=== PATIENT | male | born 1940 | race Caucasian/White ===

== ENCOUNTER 2018-11-24 06:46 | Inpatient (IN) | payer MEDICARE ==
[2018-11-24] MEDS ORDERED: Aspirin Chewable 81 MG TAB ONE (07:25)
[2018-11-24 07:43] LABS: INR-International Normal Ratio 1.8; Prothrombin Time 21.3 SEC (12.0-14.7)
[2018-11-24] MEDS ORDERED: Diltiazem 125 MG in Sodium Chloride 0.9% 100 ML IVPB SCH ×2 (07:45→10:45)
[2018-11-24 07:46] LABS: #Lymphocytes 0.6 thou/uL (1.20-3.40); #Neutrophils 10.6 thou/uL (1.40-6.50); %Basophils 0.2 % (0.0-1.0); %Eosinophils 0.1 % (0.0-10.0); %Lymphocytes 4.9 % (21.0-51.0); %Monocytes 8.2 % (0.0-10.0); %Neutrophils 86.6 % (42.0-75.0); Band 27 % (5-11); Hemoglobin 11.5 g/dL (14.0-18.0); Lymphocytes 7 % (21-51); MDiff Complete? YES; Mean Corpuscular HGB CONC 32.1 g/dL (32.0-36.0); Mean Corpuscular Hemoglobin 32.5 pg (27.0-31.0); Mean Platelet Volume 7.4 fL (7.4-10.4); Monocytes 9 % (0-10); Neutrophil 57 % (42-75); Platelet Count 106 thou/uL (130-400); Platelet Morphology Comment Appears Decreased; RBC Distribution Width 13.6 % (11.5-14.5); RBC Morphology Normal; Red Blood Cell (RBC) Count 3.53 mill/uL (4.70-6.10); White Blood Cell (WBC) Count 12.3 thou/uL (4.8-10.8)
[2018-11-24 07:47] LABS: Chloride 104 mmol/L (98-107); Potassium 3.9 mmol/L (3.5-5.1); Sodium 137 mmol/L (136-145)
[2018-11-24 08:00] LABS: ALT (SGPT) 20 U/L (8-55); AST (SGOT) 17 U/L (5-34); Albumin 3.5 g/dL (3.4-4.8); Alkaline Phosphatase 59 U/L (40-150); Anion Gap 16 mmol/L (10-20); BUN (Urea Nitrogen) 18 mg/dL (8.4-25.7); Bilirubin, Total 0.9 mg/dL (0.2-1.2); CK (CPK) 19 U/L (30-200); Calc. Creatinine Clearance 0 mL/min (70-130); Calcium 8.8 mg/dL (7.8-10.44); Carbon Dioxide 21 mmol/L (23-31); Estimated GFR-MDRD 87; Globulin 3.1 g/dL (2.4-3.5); Glucose 205 mg/dL (83-110); Protein, Total 6.6 g/dL (5.8-8.1)
--- NOTE | 2018-11-24 08:58 | RAD ---
SINGLE VIEW CHEST: HISTORY: Rapid heart rate and shortness of breath. COMPARISON: None. FINDINGS: A single view of the chest shows a normal sized cardiomediastinal silhouette. The patient is status post sternotomy. There is no evidence of consolidation, mass, or pleural effusion. IMPRESSION: No evidence of acute cardiopulmonary disease. POS: [facility]
[2018-11-24] MEDS ORDERED: Dextrose 5% in Water 1,000 ML IV PRN (10:41)
[2018-11-24] MEDS ORDERED: Dextrose 50% Abboject 50 ML SYRINGE SLOW IVP PRN (10:41)
[2018-11-24] MEDS ORDERED: Guaifenesin DM 100-10/5 ML UDCUP PO PRN (10:41)
[2018-11-24] MEDS ORDERED: HumaLOG 300 UNITS/3 ML VIAL SC PRN ×2 (10:41)
[2018-11-24] MEDS ORDERED: Heparin 1,000 UNITS/ML VIAL ONE (11:11)
[2018-11-24 11:14] LABS: Troponin I Less than 0.010 ng/mL (< 0.028)
--- NOTE | 2018-11-24 11:27 | HP ---
REASON FOR ADMISSION: Atrial flutter with 3:1 block. HISTORY OF PRESENTING ILLNESS: The patient gives history of waking up around 5.30 in the morning. He developed palpitations along with shortness of breath. He felt very weak. He has had the same feeling yesterday in the evening and two or three days back as well. He knew he was in atrial fibrillation or flutter as he has had them before. He called 911 and the patient was brought here. EMS recorded his ventricular rate going up to 204 beats per minute at 6:02 a.m. On arrival here , the patient had flutter at 115 beats per minute. He was given Cardizem IV 20 mg push and is currently on 5 mg an hour. No complaints of chest pain or palpitation. No complaints of expectoration, but has dry cough. No complaints of urinary frequency or urgency. He states he ambulates by himself. PAST MEDICAL AND SURGICAL HISTORY: He has had nearly four cardioversions. The dates are 12/2006, 02/2007, 09/2007, and 07/2009. He has had ablation done twice that is on 07/2004 and 07/2007. Most of these were done by Dr. Almaraz. Mitral valve repair done in January of 2002 at [facility]. Inguinal hernia repair. Laparoscopic cholecystectomy done in November of 2010. EGD done in November of 2010. Colonoscopy done in November of 2010. Diabetes mellitus type 2. CURRENT MEDICATIONS: The patient takes, 1. Zetia 10 mg p.o. daily. 2. Norvasc 10 mg daily. 3. Metformin extended release 2000 mg p.o. at bedtime. 4. Vitamin D3 50,000 once a week. 5. Pravastatin 80 mg p.o. at bedtime. 6. Glimepiride 2 mg p.o. q.a.m. 7. Flomax 0.4 mg p.o. daily. 8. Ferrous sulfate 325 mg p.o. daily. 9. Xarelto 20 mg p.o. daily. 10. Jardiance 10 mg p.o. daily. ALLERGIES: NO KNOWN DRUG ALLERGIES. PERSONAL HISTORY: Drinks vodka tonic daily along with a glass of wine. Does not abuse drugs. No history of smoking. FAMILY HISTORY: Both parents in their 70s. Mother had dementia. Father had coronary artery disease. CODE STATUS: Full. POWER OF CONVENTION WORKER: His son Mr. Bakari Stringer. REVIEW OF SYSTEMS: CONSTITUTIONAL: Negative for weight loss or gain, ability to conduct usual activities. SKIN: Negative for rash, itching. EYES: Negative for double vision, pain. ENT/MOUTH: Negative for nose bleeding, neck stiffness, pain, tenderness. CARDIOVASCULAR: Negative for palpitations, dyspnea on exertion, orthopnea. RESPIRATORY: Negative for shortness of breath, wheezing, cough, hemoptysis, fever or night sweats. GASTROINTESTINAL: Negative for poor appetite, abdominal pain, heartburn, nausea , vomiting, constipation, or diarrhea. GENITOURINARY: Negative for urgency, frequency, dysuria, nocturia. MUSCULOSKELETAL: Negative for pain, swelling. NEUROLOGIC/PSYCHIATRIC: Negative for anxiety, depression. ALLERGY/IMMUNOLOGIC: Negative for skin rash, bleeding tendency. PHYSICAL EXAMINATION: GENERAL: The patient is a 77-year-old male, who is currently not in any acute distress. VITAL SIGNS: Blood pressure 124/82, pulse 86 per minute, respiratory rate is 18 per minute, temperature 98.2 degrees Fahrenheit, and saturating 93% on room air. NECK: Supple. No elevated JVD. HEENT: Eyes; extraocular muscles are intact. Pupils are reacting to light. Oral cavity, mucous membranes are dry. No exudates or congestion. CARDIOVASCULAR SYSTEM: S1 and S2 heard. Currently in regular rhythm. RESPIRATORY SYSTEM: Air entry 1+ bilateral. Scattered rhonchi plus no rales or wheezes. ABDOMEN: Soft. Bowel sounds heard. No tenderness, rigidity, or guarding. EXTREMITIES: Mild ankle edema, otherwise no calf tenderness. Peripheral pulses are 2+ bilateral. No ischemic ulcerations or gangrene. CENTRAL NERVOUS SYSTEM: No gross focal deficits noted. The patient is alert, awake, and oriented well. PSYCHIATRIC SYSTEM: The patient's mood is euthymic. No hallucinations or delusions. LABORATORY DATA: EKG done by EMS shows atrial flutter at 204 beats per minute. This was at 6:02 a.m. A 12-lead EKG done in the ER; in the initial one, the rate was 115 with atrial flutter. The subsequent one done after 15 minutes shows ventricular rate going down to 70 beats per minute with the patient still in atrial flutter. White count of 12, hemoglobin and hematocrit of 11 and 35, platelet count 106, MCV is 101 with 86% neutrophils. PT and INR of 21 and 1.8. Serum bicarb 21, BUN 18, creatinine 0.8, serum glucose 205. Liver enzymes are within normal limits. Troponin I 0.01. BNP 211. Albumin is 3.5. Chest x-ray done shows no acute cardiopulmonary abnormality. CLINICAL IMPRESSION AND PLAN: The patient will be admitted to telemetry for recurrent atrial flutter with multiple prior ablations and cardioversions. His rate is currently holding up on Cardizem drip. We will continue his Cardizem drip at 5 mg an hour. We will consult Dr. Viet De Jesus, who is planer stone for electrophysiology for Dr. Almaraz. We will also place him on normal saline at 50 mL per hour for buffering in case if he gets into low pressure with Cardizem drip. Echo with 2D Doppler for LV function and to rule out thrombus will be obtained. We will continue Xarelto, Pravachol high dose, Flomax, metformin will be 1000 mg twice daily, glimepiride 2 mg daily, and Zetia as before. We will add a small dose of aspirin for now. His music mixer is Dr. Segura, who will be consulted if needed during his stay here. We will continue to closely monitor him on telemetry. Job ID: [id number] [facility]
[2018-11-24 13:00] LABS: Bilirubin Small (Negative); Blood, Urine Trace (Negative); Clarity CLEAR (Clear); Glucose, Urine (Dipstick) >=1000 mg/dL (Negative); Leukocyte Negative (Negative); Nitrite Negative (Negative); Protein, Urine (Dipstick) 30 mg/dL (Neg-Trace); Specific Gravity, Urine 1.039 (1.002-1.036)
[2018-11-24 13:03] LABS: Bacteria/HPF None Seen HPF (None Seen); Hyaline Casts/LPF 4-6 HYALINE CAST LPF (0-3 Hyaline); Pathc Cast-AUWi Flag 1.01 (0-2.49); Squamous Epithelial 0-3 HPF (0-3)
[2018-11-24 14:21] LABS: Troponin I 0.015 ng/mL (< 0.028)
[2018-11-24 14:48] VITALS: BMI 23.2
[2018-11-24] MEDS: Sodium Chloride 0.9% 1,000 ML IV SCH (16:49)
[2018-11-24] MEDS: metFORMIN 500 MG TAB PO SCH (18:02)
[2018-11-24] MEDS: Atorvastatin Calcium 20 MG TAB PO SCH (20:11)
[2018-11-24] MEDS: Famotidine 20 MG TAB PO SCH (20:11)
--- NOTE | 2018-11-24 23:51 | CON ---
DATE OF CONSULTATION: 11/24/2018 HISTORY OF PRESENT ILLNESS: I am seeing Mr. Stringer at our [facility]. His problems are: 1. Rapid tachycardia, likely atrial flutter 1:1 conduction, responding to IV diltiazem. 2. Atrial arrhythmias with chronic atrial flutter to a prior history of ablation procedure most recently in September 2008. 3. History of preserved LVEF on echo at 55% to 60% on March 19, 2015, left atrial enlargement. 4. History of anemia without definite cause or overt GI bleed, tolerating Xarelto. 5. Risk factors including diabetes and hypertension. 6. History of mitral valve annuloplasty. 7. Leukocytosis. ALLERGIES: SULFA. MEDICATIONS: At home included; 1. Jardiance. 2. Cholecalciferol. 3. Ferrous sulfate. 4. Rivaroxaban. 5. Amlodipine. 6. Metformin. 7. Prolastin. 8. Ezetimibe. 9. Metronidazole. 10. Tamsulosin. 11. Glimepiride. 12. Myrbetriq. SUBJECTIVE: Mr. Stringer is reporting 3-4 weeks of increased fatigue and tiredness. No obvious reason for this is present. He diagnosed with palpitations until 2 days prior to admission. This worsened by 0530 hours in the morning. He had rapid palpitations and dyspnea. He felt very weak and he came to the ER. His heart rate by EMS was 204 beats per minute, but on arrival to the ER, his heart rate was 150 beats per minute. IV diltiazem 10 mg was given and then drip after that. He has stabilized on the current regimen. He has no angina-like discomfort. Significant dyspnea at this time. No fever or chills. Has chronic dry cough. No urinary frequency or urgency. No abdominal discomfort or diarrhea. Rest of 12-point system otherwise unremarkable. PAST MEDICAL HISTORY: As above. He had extensive arrhythmia history with repeated cardioversions and ablations in July 2004 [address] Almaraz in the past. He had mitral valve repair in 2001 at [facility]. SOCIAL HISTORY: The patient denies smoking, EtOH, or drug abuse. FAMILY HISTORY: Not contributory. OBJECTIVE DATA: VITAL SIGNS: Blood pressure 120/58, heart rate 93, respirations 18, and temperature 97.9 degrees Fahrenheit. PHYSICAL EXAMINATION: GENERAL: Alert and oriented man, in no apparent distress. NECK: Supple. Jugular veins not distended. CHEST: Coarse without crackles. HEART: Sounds are irregular. No murmur or gallop. ABDOMEN: Benign. Bowel sounds positive. EXTREMITIES: Lower extremities without edema, clubbing, or cyanosis. DATABASE: EKGs reviewed revealing chronic atrial flutter of unlike prior EKGs. Initial EKG does reveal some episodic short rapid heart beats with rate related aberration to right bundle pattern. LABORATORY DATA: White cells 12.3, hemoglobin 11.5, and platelet count is 106. INR 1. Sodium 137, potassium 3.9, BUN is 18, and creatinine 0.85. ASSESSMENT AND PLAN: Mr. Stringer is a pleasant 77-year-old man with prior extensive history of atrial arrhythmias with repeat ablation as noted above. He has been in chronic atrial flutter, which was very well rate controlled without any AV thompson blocking agents. He is also on chronic oral anticoagulation as his stroke risk. Now, he presents with worsening palpitations and a very rapid tachycardia by EMS is noted , but subsequently in ER the heart rates are already better controlled. He is currently on diltiazem drip. The reason for his worsening heart rate control is not very clear. No obvious change in his cardiac statuis is seen. 2D echo will be checked for any abnormalities, not suspecting ischemic event, hence, benign troponin levels and lack of symptoms. Possible alternative explanation might need to be considered. Infectious etiologies will be evaluated as per Dr. Scott. It is not unreasonable to switch him his amlodipine into diltiazem for further rate control. \ For now, we will continue Xarelto. At this point, no new ablation procedure is planned. Thank you again for allowing me to participate in the care of this patient. Job ID: [id number] [facility]
[2018-11-25] MEDS: Ampicillin 2 GM in Sodium Chloride 0.9% 100 ML IVPB SCH ×5 (02:42→20:30)
[2018-11-25 05:42] LABS: #Lymphocytes 0.8 thou/uL (1.20-3.40); #Monocytes 0.8 thou/uL (0.11-0.59); #Neutrophils 6.7 thou/uL (1.40-6.50); %Basophils 0.2 % (0.0-1.0); %Eosinophils 0.3 % (0.0-10.0); %Lymphocytes 9.9 % (21.0-51.0); %Monocytes 9.8 % (0.0-10.0); %Neutrophils 79.8 % (42.0-75.0); Hemoglobin 10.4 g/dL (14.0-18.0); Mean Corpuscular HGB CONC 32.2 g/dL (32.0-36.0); Mean Corpuscular Hemoglobin 32.9 pg (27.0-31.0); Mean Platelet Volume 7.5 fL (7.4-10.4); Platelet Count 98 thou/uL (130-400); RBC Distribution Width 13.5 % (11.5-14.5); Red Blood Cell (RBC) Count 3.17 mill/uL (4.70-6.10); White Blood Cell (WBC) Count 8.4 thou/uL (4.8-10.8)
[2018-11-25 06:11] LABS: Anion Gap 14 mmol/L (10-20); BUN (Urea Nitrogen) 14 mg/dL (8.4-25.7); Calc. Creatinine Clearance 95 mL/min (70-130); Calcium 8.5 mg/dL (7.8-10.44); Carbon Dioxide 23 mmol/L (23-31); Chloride 107 mmol/L (98-107); Estimated GFR-MDRD Greater than 90; Glucose 140 mg/dL (83-110); Sodium 140 mmol/L (136-145)
[2018-11-25] MEDS: Rivaroxaban 10 MG TAB PO SCH (06:22)
[2018-11-25] MEDS: metFORMIN 500 MG TAB PO SCH ×2 (08:18→16:09)
[2018-11-25] MEDS: Tamsulosin HCl 0.4 MG CAP PO SCH (08:19)
[2018-11-25] MEDS: Glimepiride 2 MG TAB PO SCH (08:19)
[2018-11-25] MEDS: Famotidine 20 MG TAB PO SCH ×2 (08:19→20:41)
[2018-11-25] MEDS: Ezetimibe 10 MG TAB PO SCH (08:20)
[2018-11-25] MEDS: Aspirin Chewable 81 MG TAB PO SCH (08:20)
[2018-11-25] MEDS ORDERED: Prevnar 13-Val Conj/PF 0.5 ML SYRINGE IM ONE (09:00)
[2018-11-25] MEDS ORDERED: Amlodipine 10 MG TAB PO SCH (09:00)
[2018-11-25] MEDS: cefTRIAXone\\ROCEPHIN 2 GM in Sodium Chloride 0.9% 100 ML IVPB SCH ×2 (09:32→20:46)
[2018-11-25] MEDS: Sodium Chloride 0.9% 1,000 ML IV SCH (12:13)
--- NOTE | 2018-11-25 13:58 | PDOC.CTH ---
Cardiology Progress Note - Subjective EP PROGRESS NOTE: 11/25/18 Seen as follow up for atypical atrial flutter with RVR. No cardiac concerns or complaints today. He is feeling well but is concerned about the positive blood cultures. - Objective Vital Signs Temp Pulse Resp BP Pulse Ox 11/25/18 08:12 99.2 F 96 16 125/76 94 L 11/25/18 04:00 99.1 F 95 20 150/76 H 95 Admit Weight 176 lb Weight 176 lb 11/24/18 11/25/18 11/26/18 06:59 06:59 06:59 Intake Total 1215 Output Total 1625 Balance -410 - Physical Examination General/Neuro: alert & oriented x3, NAD Neck: carotid US brisk, no JVD present Lungs: CTA, unlabored respirations Heart: PMI normal Abdomen: NT/ND, soft - Telemetry Telemetry Rhythm: atypical atrial flutter - Labs Result Diagrams: 11/25/18 05:23 11/25/18 05:23 Troponin/CKMB Troponin I 0.015 ng/mL (< 0.028) 11/24/18 13:21 - Assessment/Plan 1. Atrial arrhythmias -s/p PVI in remote past. Now with chronic atypical atrial flutter. Came in with 1:1 RVR possibly provoked by BSI. 2. CHADS2-VASC: 4 - chronic anticoagulation with xarelto 3. Positive blood cultures - infectious process being evaluated by Kyle CASTRO. Started on PO diltiazem CD 180mg QD this AM. VR <100. Will stop diltiazem gtt and continue with PO rate control. Continue Xarelto for OAC. Will need OP follow up with [facility]. EP signing off. Please contact me if further EP input is desired.
--- NOTE | 2018-11-25 14:59 | PDOC.PN ---
- Subjective Encounter Start Date: 11/25/18 Encounter Start Time: 08:40 Pt seen for followup re: bacteremia. Says he feels well. No chest pain or shortness of breath. - Objective Resuscitation Status - Order Detail: 11/24/18 10:35 Resuscitation Status Routine Resuscitation Status: FULL: Full Resuscitation Discussed with: JADE is son: Mr.James Myke PINA Reviewed: Yes Vital Signs & Weight: Vital Signs (12 hours) Temp Pulse Resp BP Pulse Ox 11/25/18 12:00 98 F 94 18 116/70 95 11/25/18 08:12 99.2 F 96 16 125/76 94 L 11/25/18 04:00 99.1 F 95 20 150/76 H 95 Weight Admit Weight 176 lb Weight 176 lb I&O: 11/24/18 11/25/18 11/26/18 06:59 06:59 06:59 Intake Total 1215 Output Total 1625 Balance -410 Result Diagrams: 11/25/18 05:23 11/25/18 05:23 Additional Labs: Accuchecks 11/25/18 11/25/18 11/24/18 11:51 05:57 20:16 POC Glucose 146 H 131 H 219 H 11/24/18 17:52 POC Glucose 202 H EKG Reviewed by me: Yes (Tele: NSR) Phys Exam - Physical Examination Constitutional: NAD HEENT: moist MMs, sclera anicteric, oral pharynx no lesions, 2+ tonsils Neck: no nodes, no JVD, supple, full ROM Respiratory: clear to auscultation bilateral Cardiovascular: RRR, no rub S1, S2 Gastrointestinal: soft, non-tender, no distention, positive bowel sounds Neurological: moves all 4 limbs Psychiatric: normal affect, A&O x 3 Dx/Plan (1) Bacteremia Code(s): R78.81 - BACTEREMIA Status: Acute Comment: continue IV antibiotics as below, await sensitivities (2) Afib Code(s): I48.91 - UNSPECIFIED ATRIAL FIBRILLATION Status: Acute Comment: pt is in sinus rhythm now (3) HTN (hypertension) Code(s): I10 - ESSENTIAL (PRIMARY) HYPERTENSION Status: Chronic Comment: controlled (4) DM2 (diabetes mellitus, type 2) Status: Chronic Comment: relatively controlled (5) Dyslipidemia Code(s): E78.5 - HYPERLIPIDEMIA, UNSPECIFIED Status: Chronic Comment: continue Lipitor - Plan * . Review of Systems - Review of Systems Constitutional: negative: fever, chills, sweats, weakness, malaise Cardiovascular: negative: chest pain, palpitations, orthopnea, paroxysmal nocturnal dyspnea, edema, light headedness Gastrointestinal: negative: Nausea, Vomiting, Abdominal Pain, Diarrhea, Constipation, Melena, Hematochezia Genitourinary: negative: Dysuria, Frequency, Incontinence, Hematuria, Retention Skin: negative: Rash, Lesions, Juan, Bruising - Medications/Allergies Allergies/Adverse Reactions: Allergies Allergy/AdvReac Type Severity Reaction Status Date / Time Sulfa (Sulfonamide Allergy Unknown Verified 11/24/18 14:45 Antibiotics) Medications: Current Medications Acetaminophen (Tylenol) 650 mg PO Q4H PRN PRN Reason: Headache/Fever/Mild Pain (1-3) Aspirin (Aspirin Chewable) 81 mg PO DAILY [facility] Last Admin: 11/25/18 08:20 Dose: 81 mg Atorvastatin Calcium (Lipitor) 20 mg PO HS [facility] Last Admin: 11/24/18 20:11 Dose: 20 mg Dextrose/Water (Dextrose 50%) 25 gm SLOW IVP PRN PRN PRN Reason: Hypoglycemia Diltiazem HCl (Cardizem Cd) 180 mg PO DAILY [facility] Last Admin: 11/25/18 09:32 Dose: 180 mg Ezetimibe (Zetia) 10 mg PO DAILY [facility] Last Admin: 11/25/18 08:20 Dose: 10 mg Famotidine (Pepcid) 20 mg PO BID [facility] Last Admin: 11/25/18 08:19 Dose: 20 mg Glimepiride (Amaryl) 2 mg PO QAM[facility] Last Admin: 11/25/18 08:19 Dose: 2 mg Glucagon (Glucagon) 1 mg IM PRN PRN PRN Reason: Hypoglycemia Guaifenesin/Dextromethorphan (Robitussin Dm) 15 ml PO Q4H PRN PRN Reason: Cough Dextrose/Water (D5w) 1,000 mls @ 0 mls/hr IV .Q0M PRN PRN Reason: Hypoglycemia Sodium Chloride (Normal Saline 0.9%) 1,000 mls @ 50 mls/hr IV .Q20H [facility] Last Admin: 11/25/18 12:13 Dose: 1,000 mls Ceftriaxone Sodium 2 gm/ (Sodium Chloride) 100 mls @ 200 mls/hr IVPB Q12HR [facility] Last Admin: 11/25/18 09:32 Dose: 100 mls Ampicillin Sodium 2 gm/ Sodium (Chloride) 100 mls @ 200 mls/hr IVPB 0000,0400, 0800,1200 [facility] Last Admin: 11/25/18 12:12 Dose: 100 mls Ampicillin Sodium 2 gm/ Sodium (Chloride) 100 mls @ 200 mls/hr IVPB 1600,2000 [facility] Insulin Human Lispro (Humalog) 0 units SC .MODERATE SLIDING SC PRN PRN Reason: Moderate Correctional Scale Insulin Human Lispro (Humalog) 0 units SC .BEDTIME SLIDING SC PRN PRN Reason: Bedtime Correctional Scale Metformin HCl (Glucophage) 1,000 mg PO BID-[facility] Last Admin: 11/25/18 08:18 Dose: 1,000 mg Rivaroxaban (Xarelto) 20 mg PO 0600 [facility] Last Admin: 11/25/18 06:22 Dose: 20 mg Sodium Chloride (Flush - Normal Saline) 10 ml IVF Q12HR [facility] Last Admin: 11/25/18 09:08 Dose: Not Given Sodium Chloride (Flush - Normal Saline) 10 ml IVF PRN PRN PRN Reason: Saline Flush Tamsulosin HCl (Flomax) 0.4 mg PO DAILY [facility] Last Admin: 11/25/18 08:19 Dose: 0.4 mg
[2018-11-25] MEDS: Atorvastatin Calcium 20 MG TAB PO SCH (20:41)
[2018-11-26] MEDS: Ampicillin 2 GM in Sodium Chloride 0.9% 100 ML IVPB SCH ×6 (00:33→20:15)
--- NOTE | 2018-11-26 00:53 | CON ---
DATE OF CONSULTATION: 11/25/2018 REASON FOR CONSULTATION: Bacteremia. HISTORY OF PRESENT ILLNESS: A 77-year-old, who has a history of what appears to be a supraventricular tachycardia with atrial flutter, prior cardioversions, and 2 ablations as well as a previous mitral valve repair, who has felt unwell for the past 2 to 3 months with racing heart rates intermittently with spontaneous reversion. He had some weakness and dyspnea associated with it. Some weight loss about 10 pounds. He never had fever or chills. No night sweats. No chest pain. No back pain. No genitourinary symptoms. No abdominal pain or diarrhea. No joint symptoms. No neurological symptoms. PAST MEDICAL HISTORY: Atrial flutter with previous cardioversions and ablations , mitral valve repair, hernia repair. SOCIAL HISTORY: He drinks alcoholic beverages daily. He is a never smoker, retired, lives in [place] by himself. ALLERGIES: HISTORY OF ALLERGY TO SULFA DRUGS. FAMILY HISTORY: Noncontributory. CURRENT MEDICATIONS: 1. Ampicillin. 2. Aspirin. 3. Ceftriaxone. 4. Zetia. 5. Pepcid. 6. Amaryl. 7. Insulin. 8. Xarelto. 9. Tamsulosin. PHYSICAL EXAMINATION: VITAL SIGNS: T-max 99.1, blood pressure 116/70, pulse 94, respirations 18, and O2 saturation 95%. SKIN: Normal. NECK: No lymphadenopathy. Neck is supple. No jugular vein distention or carotid bruits. HEENT: Ocular movements conjugate. Sclerae are white. The patient has a right-sided conjunctival hemorrhages noted. Nasal passages are patent. Oral cavity is unremarkable. Quite a few teeth in place with some decay and gum disease. LUNGS: Symmetric air entry with faint basilar inspiratory crackles. CARDIAC: S1 and S2. Regular rate without obvious murmurs. ABDOMEN: Soft, not distended or tender. No ascites. No bladder distention. No organomegaly. No genital abnormalities. EXTREMITIES: No joint inflammatory activity. Pulses are 1+ in dorsalis pedis. No edema. Moves extremities equally. NEUROLOGIC: He is awake, oriented, follows commands. Cognitive function appears to be intact. LABORATORY DATA: White cell count is 12.3, down to 8.4; hemoglobin 11; MCV 101; platelets 106; and 27% bands on arrival. INR 1.8. Chemistry; sodium 137 and creatinine 0.85. Liver profile within normal limits. CK 19 and albumin 3.5. Urinalysis with 4-6 wbc's. Microbiology with 2 out of 2 sets of blood cultures with Enterococcus faecalis. His urine culture with something growing in it. Further incubation required. Urinalysis already discussed. DIAGNOSTIC DATA: The patient has had an echocardiogram, transthoracic with moderately dilated left atrium, [id number] mitral regurgitation. Chest x-ray with no acute cardiopulmonary disease. ASSESSMENT: 1. Previous history of supraventricular tachycardia with prior ablations, cardioversions for atrial flutter as well as mitral valve repair. 2. Enterococcus faecalis bacteremia. 3. [id number] mitral regurgitation. DISCUSSION: Differential diagnosis includes mitral valve endocarditis or aortic valve endocarditis due to Enterococcus faecalis versus urinary tract infection. We will have to assume he has endocarditis until proven otherwise. We will order a INO and eventually decide on the need for protracted IV antimicrobial therapy. Options for treatment of an Enterococcus faecalis endocarditis have expanded a bit with the possibility of utilization of a combination of ampicillin and Rocephin, I have had failures of this regimen in the past. We will have to monitor closely. In his case, I probably would try that first before resorting to gentamicin, ampicillin , but that will depend on the INO findings. If he has a lot of disease there, then we will probably go for the more proven regimen of penicillin and gentamicin, that would require PICC line placement and disposition will depend on other issues. He lives alone at home and then he would require a double-lumen PICC line with pump infusion and intermittent administration of Rocephin in the home setting or gentamicin, which would complicate situation. Probably, we will end up in a skilled unit, maybe the [facility]' swing bed. Job ID: [id number] [facility]
[2018-11-26] MEDS: Sodium Chloride 0.9% 1,000 ML IV SCH (06:10)
[2018-11-26] MEDS: Rivaroxaban 10 MG TAB PO SCH ×2 (07:50→10:37)
[2018-11-26] MEDS: cefTRIAXone\\ROCEPHIN 2 GM in Sodium Chloride 0.9% 100 ML IVPB SCH ×2 (10:27→20:15)
[2018-11-26] MEDS: Famotidine 20 MG TAB PO SCH ×2 (10:33→20:15)
[2018-11-26] MEDS: Tamsulosin HCl 0.4 MG CAP PO SCH (10:34)
[2018-11-26] MEDS: metFORMIN 500 MG TAB PO SCH ×2 (10:34→16:26)
[2018-11-26] MEDS: Aspirin Chewable 81 MG TAB PO SCH (10:34)
[2018-11-26] MEDS: Ezetimibe 10 MG TAB PO SCH (10:35)
[2018-11-26] MEDS: Glimepiride 2 MG TAB PO SCH (10:36)
[2018-11-26] MEDS ORDERED: PROPOFOL 20 ML ONE (13:15)
[2018-11-26] MEDS ORDERED: PROPOFOL 200 MG/20 ML VIAL ONE (13:32)
--- NOTE | 2018-11-26 15:16 | PDOC.PN ---
- Subjective Encounter Start Date: 11/26/18 Encounter Start Time: 08:40 Pt seen for followup re: bacteremia. Says he feels well, no complaints. - Objective Resuscitation Status - Order Detail: 11/24/18 10:35 Resuscitation Status Routine Resuscitation Status: FULL: Full Resuscitation Discussed with: JADE is son: Mr.James Myke PINA Reviewed: Yes Vital Signs & Weight: Vital Signs (12 hours) Temp Pulse Resp BP Pulse Ox 11/26/18 04:00 97.9 F 92 18 119/74 96 Weight Admit Weight 176 lb Weight 178 lb 1.6 oz I&O: 11/25/18 11/26/18 11/27/18 06:59 06:59 06:59 Intake Total 1215 2684 Output Total 1625 1875 Balance -410 809 Result Diagrams: 11/25/18 05:23 11/25/18 05:23 Additional Labs: Accuchecks 11/26/18 11/26/18 11/25/18 11:01 05:02 20:28 POC Glucose 135 H 159 H 163 H 11/25/18 17:29 POC Glucose 135 H EKG Reviewed by me: Yes (Tele: a. fib) Phys Exam - Physical Examination Constitutional: NAD HEENT: moist MMs, sclera anicteric, oral pharynx no lesions, 2+ tonsils Neck: no nodes, no JVD, supple, full ROM Respiratory: clear to auscultation bilateral Cardiovascular: no rub, irregular S1, S2, murmur Gastrointestinal: soft, non-tender, no distention, positive bowel sounds Neurological: moves all 4 limbs Psychiatric: normal affect, A&O x 3 Dx/Plan (1) Bacteremia Code(s): R78.81 - BACTEREMIA Status: Acute Comment: continue IV antibiotics as below, await sensitivities. Concern re; infective endocarditis. Pt will need INO. (2) Afib Code(s): I48.91 - UNSPECIFIED ATRIAL FIBRILLATION Status: Acute Comment: pt is in a. fib, continue anticoagulation (3) HTN (hypertension) Code(s): I10 - ESSENTIAL (PRIMARY) HYPERTENSION Status: Chronic Comment: controlled (4) DM2 (diabetes mellitus, type 2) Status: Chronic Comment: relatively controlled (5) Dyslipidemia Code(s): E78.5 - HYPERLIPIDEMIA, UNSPECIFIED Status: Chronic Comment: on Lipitor - Plan * . Review of Systems - Review of Systems Constitutional: negative: fever, chills, sweats, weakness, malaise Cardiovascular: negative: chest pain, palpitations, orthopnea, paroxysmal nocturnal dyspnea, edema, light headedness Gastrointestinal: negative: Nausea, Vomiting, Abdominal Pain, Diarrhea, Constipation, Melena, Hematochezia Genitourinary: negative: Dysuria, Frequency, Incontinence, Hematuria, Retention Musculoskeletal: negative: Neck Pain, Shoulder Pain, Arm Pain, Back Pain, Hand Pain, Leg Pain, Foot Pain Skin: negative: Rash, Lesions, Juan, Bruising - Medications/Allergies Allergies/Adverse Reactions: Allergies Allergy/AdvReac Type Severity Reaction Status Date / Time Sulfa (Sulfonamide Allergy Unknown Verified 11/24/18 14:45 Antibiotics) Medications: Current Medications Acetaminophen (Tylenol) 650 mg PO Q4H PRN PRN Reason: Headache/Fever/Mild Pain (1-3) Aspirin (Aspirin Chewable) 81 mg PO DAILY [facility] Last Admin: 11/26/18 10:34 Dose: 81 mg Atorvastatin Calcium (Lipitor) 20 mg PO HS [facility] Last Admin: 11/25/18 20:41 Dose: 20 mg Dextrose/Water (Dextrose 50%) 25 gm SLOW IVP PRN PRN PRN Reason: Hypoglycemia Diltiazem HCl (Cardizem Cd) 180 mg PO DAILY [facility] Last Admin: 11/26/18 10:33 Dose: 180 mg Ezetimibe (Zetia) 10 mg PO DAILY [facility] Last Admin: 11/26/18 10:35 Dose: 10 mg Famotidine (Pepcid) 20 mg PO BID [facility] Last Admin: 11/26/18 10:33 Dose: 20 mg Glimepiride (Amaryl) 2 mg PO QAM-WM [facility] Last Admin: 11/26/18 10:36 Dose: 2 mg Glucagon (Glucagon) 1 mg IM PRN PRN PRN Reason: Hypoglycemia Guaifenesin/Dextromethorphan (Robitussin Dm) 15 ml PO Q4H PRN PRN Reason: Cough Dextrose/Water (D5w) 1,000 mls @ 0 mls/hr IV .Q0M PRN PRN Reason: Hypoglycemia Sodium Chloride (Normal Saline 0.9%) 1,000 mls @ 50 mls/hr IV .Q20H [facility] Last Admin: 11/26/18 06:10 Dose: 1,000 mls Ceftriaxone Sodium 2 gm/ (Sodium Chloride) 100 mls @ 200 mls/hr IVPB Q12HR [facility] Last Admin: 11/26/18 10:27 Dose: 100 mls Ampicillin Sodium 2 gm/ Sodium (Chloride) 100 mls @ 200 mls/hr IVPB 0000,0400, 0800,1200 [facility] Last Admin: 11/26/18 15:02 Dose: Not Given Ampicillin Sodium 2 gm/ Sodium (Chloride) 100 mls @ 200 mls/hr IVPB 1600,2000 [facility] Last Admin: 11/25/18 20:30 Dose: 100 mls Insulin Human Lispro (Humalog) 0 units SC .MODERATE SLIDING SC PRN PRN Reason: Moderate Correctional Scale Insulin Human Lispro (Humalog) 0 units SC .BEDTIME SLIDING SC PRN PRN Reason: Bedtime Correctional Scale Metformin HCl (Glucophage) 1,000 mg PO BID-[facility] Last Admin: 11/26/18 10:34 Dose: 1,000 mg Rivaroxaban (Xarelto) 20 mg PO 0600 [facility] Last Admin: 11/26/18 10:37 Dose: 20 mg Sodium Chloride (Flush - Normal Saline) 10 ml IVF Q12HR [facility] Last Admin: 11/26/18 10:26 Dose: 10 ml Sodium Chloride (Flush - Normal Saline) 10 ml IVF PRN PRN PRN Reason: Saline Flush Tamsulosin HCl (Flomax) 0.4 mg PO DAILY [facility] Last Admin: 11/26/18 10:34 Dose: 0.4 mg
[2018-11-26] MEDS: Acetaminophen 325 MG TAB PO PRN (20:16)
[2018-11-26] MEDS: Atorvastatin Calcium 20 MG TAB PO SCH (20:16)
[2018-11-27] MEDS: Ampicillin 2 GM in Sodium Chloride 0.9% 100 ML IVPB SCH ×7 (01:13→23:10)
[2018-11-27] MEDS: Rivaroxaban 10 MG TAB PO SCH (05:27)
[2018-11-27] MEDS: Sodium Chloride 0.9% 1,000 ML IV SCH (05:28)
[2018-11-27] MEDS ORDERED: Clopidogrel Bisulfate 75 MG TAB ONE (08:15)
[2018-11-27] MEDS: cefTRIAXone\\ROCEPHIN 2 GM in Sodium Chloride 0.9% 100 ML IVPB SCH ×2 (09:56→21:44)
[2018-11-27] MEDS: metFORMIN 500 MG TAB PO SCH ×2 (09:57→17:01)
[2018-11-27] MEDS: Tamsulosin HCl 0.4 MG CAP PO SCH (09:57)
[2018-11-27] MEDS: Aspirin Chewable 81 MG TAB PO SCH (09:57)
[2018-11-27] MEDS: Ezetimibe 10 MG TAB PO SCH (09:58)
[2018-11-27] MEDS: Glimepiride 2 MG TAB PO SCH (09:58)
[2018-11-27] MEDS: Famotidine 20 MG TAB PO SCH ×2 (09:58→20:49)
[2018-11-27 11:33] LABS: #Basophils 0.1 thou/uL (0.0-0.2); #Eosinphils 0.1 thou/uL (0.0-0.7); #Lymphocytes 0.9 thou/uL (1.20-3.40); #Monocytes 0.6 thou/uL (0.11-0.59); #Neutrophils 4.2 thou/uL (1.40-6.50); %Eosinophils 1.1 % (0.0-10.0); %Lymphocytes 14.8 % (21.0-51.0); %Monocytes 9.9 % (0.0-10.0); %Neutrophils 73.3 % (42.0-75.0); Hemoglobin 11.6 g/dL (14.0-18.0); Mean Corpuscular HGB CONC 32.8 g/dL (32.0-36.0); Mean Corpuscular Hemoglobin 32.7 pg (27.0-31.0); Mean Corpuscular Volume 99.7 fL (78.0-98.0); Mean Platelet Volume 7.5 fL (7.4-10.4); Platelet Count 132 thou/uL (130-400); RBC Distribution Width 13.7 % (11.5-14.5); Red Blood Cell (RBC) Count 3.54 mill/uL (4.70-6.10); White Blood Cell (WBC) Count 5.7 thou/uL (4.8-10.8)
[2018-11-27 11:57] LABS: Anion Gap 12 mmol/L (10-20); BUN (Urea Nitrogen) 10 mg/dL (8.4-25.7); Calc. Creatinine Clearance 81 mL/min (70-130); Carbon Dioxide 24 mmol/L (23-31); Chloride 107 mmol/L (98-107); Estimated GFR-MDRD 85; Glucose 272 mg/dL (83-110); Potassium 3.9 mmol/L (3.5-5.1); Sodium 139 mmol/L (136-145)
[2018-11-27] MEDS: Acetaminophen 325 MG TAB PO PRN (12:38)
--- NOTE | 2018-11-27 14:41 | PDOC.PN ---
- Subjective Encounter Start Date: 11/27/18 Encounter Start Time: 09:00 Pt seen for followup re; infective endocarditis. No complaints. - Objective Resuscitation Status - Order Detail: 11/24/18 10:35 Resuscitation Status Routine Resuscitation Status: FULL: Full Resuscitation Discussed with: ALEJANDRACandace is son: Mr.James Myke PINA Reviewed: Yes Vital Signs & Weight: Vital Signs (12 hours) Temp Pulse Resp BP Pulse Ox 11/27/18 12:05 97.9 F 94 25 H 133/82 98 11/27/18 05:03 97.6 F 94 20 107/59 L 97 Weight Admit Weight 176 lb Weight 179 lb 6.4 oz I&O: 11/26/18 11/27/18 11/28/18 06:59 06:59 06:59 Intake Total 2684 1072 Output Total 1875 700 Balance 809 372 Result Diagrams: 11/27/18 11:26 11/27/18 11:26 Additional Labs: Accuchecks 11/27/18 11/27/18 11/27/18 12:19 10:39 05:55 POC Glucose 239 H 292 H 167 H 11/26/18 11/26/18 20:14 17:39 POC Glucose 208 H 160 H EKG Reviewed by me: Yes (Tele: atrial flutter) Phys Exam - Physical Examination Constitutional: NAD HEENT: moist MMs Neck: supple Respiratory: clear to auscultation bilateral Cardiovascular: RRR Gastrointestinal: soft Neurological: moves all 4 limbs Psychiatric: normal affect Dx/Plan (1) Infective endocarditis Code(s): I33.0 - ACUTE AND SUBACUTE INFECTIVE ENDOCARDITIS Status: Acute Comment: Enterococcus fecalis bacteremia, vegetations on INO. Pt will need prolonged IV antibiotics, obtain PICC line. (2) Afib Code(s): I48.91 - UNSPECIFIED ATRIAL FIBRILLATION Status: Acute Comment: continue anticoagulation (3) HTN (hypertension) Code(s): I10 - ESSENTIAL (PRIMARY) HYPERTENSION Status: Chronic Comment: controlled (4) DM2 (diabetes mellitus, type 2) Status: Chronic Comment: relatively controlled (5) Dyslipidemia Code(s): E78.5 - HYPERLIPIDEMIA, UNSPECIFIED Status: Chronic Comment: stable , on Lipitor - Plan * . Review of Systems - Review of Systems Respiratory: negative: Cough, Shortness of Breath, SOB with Excertion, Pleuritic Pain, Wheezing Cardiovascular: negative: chest pain, palpitations, orthopnea, paroxysmal nocturnal dyspnea, edema, light headedness - Medications/Allergies Allergies/Adverse Reactions: Allergies Allergy/AdvReac Type Severity Reaction Status Date / Time Sulfa (Sulfonamide Allergy Unknown Verified 11/24/18 14:45 Antibiotics) Medications: Current Medications Acetaminophen (Tylenol) 650 mg PO Q4H PRN PRN Reason: Headache/Fever/Mild Pain (1-3) Last Admin: 11/27/18 12:38 Dose: 650 mg Aspirin (Aspirin Chewable) 81 mg PO DAILY [facility] Last Admin: 11/27/18 09:57 Dose: 81 mg Atorvastatin Calcium (Lipitor) 20 mg PO HS [facility] Last Admin: 11/26/18 20:16 Dose: 20 mg Dextrose/Water (Dextrose 50%) 25 gm SLOW IVP PRN PRN PRN Reason: Hypoglycemia Diltiazem HCl (Cardizem Cd) 180 mg PO DAILY [facility] Last Admin: 11/27/18 09:57 Dose: 180 mg Ezetimibe (Zetia) 10 mg PO DAILY [facility] Last Admin: 11/27/18 09:58 Dose: 10 mg Famotidine (Pepcid) 20 mg PO BID [facility] Last Admin: 11/27/18 09:58 Dose: 20 mg Glimepiride (Amaryl) 2 mg PO QAM-WM [facility] Last Admin: 11/27/18 09:58 Dose: 2 mg Glucagon (Glucagon) 1 mg IM PRN PRN PRN Reason: Hypoglycemia Guaifenesin/Dextromethorphan (Robitussin Dm) 15 ml PO Q4H PRN PRN Reason: Cough Dextrose/Water (D5w) 1,000 mls @ 0 mls/hr IV .Q0M PRN PRN Reason: Hypoglycemia Sodium Chloride (Normal Saline 0.9%) 1,000 mls @ 50 mls/hr IV .Q20H [facility] Last Admin: 11/27/18 05:28 Dose: 1,000 mls Ceftriaxone Sodium 2 gm/ (Sodium Chloride) 100 mls @ 200 mls/hr IVPB Q12HR [facility] Last Admin: 11/27/18 09:56 Dose: 100 mls Ampicillin Sodium 2 gm/ Sodium (Chloride) 100 mls @ 200 mls/hr IVPB 0000,0400, 0800,1200 [facility] Last Admin: 11/27/18 12:35 Dose: 100 mls Ampicillin Sodium 2 gm/ Sodium (Chloride) 100 mls @ 200 mls/hr IVPB 1600,2000 [facility] Last Admin: 11/26/18 20:15 Dose: 100 mls Insulin Human Lispro (Humalog) 0 units SC .MODERATE SLIDING SC PRN PRN Reason: Moderate Correctional Scale Insulin Human Lispro (Humalog) 0 units SC .BEDTIME SLIDING SC PRN PRN Reason: Bedtime Correctional Scale Metformin HCl (Glucophage) 1,000 mg PO BID-[facility] Last Admin: 11/27/18 09:57 Dose: 1,000 mg Rivaroxaban (Xarelto) 20 mg PO 0600 [facility] Last Admin: 11/27/18 05:27 Dose: 20 mg Sodium Chloride (Flush - Normal Saline) 10 ml IVF Q12HR [facility] Last Admin: 11/27/18 09:59 Dose: 10 ml Sodium Chloride (Flush - Normal Saline) 10 ml IVF PRN PRN PRN Reason: Saline Flush Tamsulosin HCl (Flomax) 0.4 mg PO DAILY [facility] Last Admin: 11/27/18 09:57 Dose: 0.4 mg
--- NOTE | 2018-11-27 19:07 | PRG ---
DATE OF SERVICE: 11/27/2018 SUBJECTIVE: Mr. Stringer is feeling okay. He denies any headaches, visual symptoms, sore throat, odynophagia, dysphagia. No cough or sputum production. No chest pain. Overall feeling better. OBJECTIVE: VITAL SIGNS: He has been afebrile since admission. Other vital signs are not remarkable. A little bit more tachypneic earlier. SKIN: Normal. LUNGS: Clear. HEART: S1 and S2, regular rate. ABDOMEN: Soft, nondistended. NEUROLOGIC: Nonfocal. LABORATORY DATA: White cell count 5.7, hemoglobin 11.6, platelets 132 with 73% neutrophils. Sodium 139, creatinine 0.87. Microbiology with Enterococcus faecalis with usual susceptibility profile. INO is reported by Dr. Segura, he does have a vegetation in the mitral valve. The INO report is somehow cut-out and we do not have a full report transcribed, but I did discuss with Dr. Segura and it did show a mitral valve vegetation. 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 The patient will need 6 weeks of IV Rocephin and ampicillin. He will need a double-lumen PICC line and monitoring his labs weekly. Repeat blood cultures down the road. I have seen cases where this regimen has failed and in that case, we will have to restart therapy with gentamicin regimen, which is the traditional one, that has lost favor because of associated nephrotoxicity from gentamicin. I explained to the patient the possible risk of failure of this regimen, but nonetheless, I think it would be the preferred regimen at least at this point in time. The end date of therapy is calculated around January 07 with weekly labs. Followup blood cultures. We will need to get the INO report properly transcribed in the chart for documentation purposes. Job ID: [id number]
[2018-11-27] MEDS: Atorvastatin Calcium 20 MG TAB PO SCH (20:49)
[2018-11-28] MEDS: Ampicillin 2 GM in Sodium Chloride 0.9% 100 ML IVPB SCH ×6 (03:19→23:59)
[2018-11-28] MEDS: Diltiazem HCl 125 MG, Admixture Fee 1 EACH in Sodium Chloride 0.9% 100 ML IVPB SCH ×2 (03:25→23:59)
[2018-11-28] MEDS ORDERED: Digoxin 0.5 MG/2 ML AMP SLOW IVP SCH ×2 (05:30→15:30)
[2018-11-28 06:08] LABS: #Eosinphils 0.1 thou/uL (0.0-0.7); #Monocytes 0.7 thou/uL (0.11-0.59); #Neutrophils 3.9 thou/uL (1.40-6.50); %Basophils 0.5 % (0.0-1.0); %Eosinophils 1.3 % (0.0-10.0); %Lymphocytes 17.1 % (21.0-51.0); %Monocytes 12.1 % (0.0-10.0); %Neutrophils 69.1 % (42.0-75.0); Hemoglobin 11.3 g/dL (14.0-18.0); Mean Corpuscular HGB CONC 32.3 g/dL (32.0-36.0); Mean Corpuscular Hemoglobin 32.2 pg (27.0-31.0); Mean Corpuscular Volume 99.9 fL (78.0-98.0); Mean Platelet Volume 7.9 fL (7.4-10.4); Platelet Count 136 thou/uL (130-400); RBC Distribution Width 13.9 % (11.5-14.5); White Blood Cell (WBC) Count 5.7 thou/uL (4.8-10.8)
[2018-11-28 06:32] LABS: Anion Gap 13 mmol/L (10-20); BUN (Urea Nitrogen) 11 mg/dL (8.4-25.7); Calc. Creatinine Clearance 91 mL/min (70-130); Calcium 8.6 mg/dL (7.8-10.44); Carbon Dioxide 21 mmol/L (23-31); Chloride 109 mmol/L (98-107); Estimated GFR-MDRD Greater than 90; Glucose 183 mg/dL (83-110); Potassium 3.7 mmol/L (3.5-5.1); Sodium 139 mmol/L (136-145)
[2018-11-28] MEDS: Sodium Chloride 0.9% 1,000 ML IV SCH ×2 (08:43→17:34)
[2018-11-28] MEDS: Glimepiride 2 MG TAB PO SCH (09:05)
[2018-11-28] MEDS: Ezetimibe 10 MG TAB PO SCH (09:05)
[2018-11-28] MEDS: Tamsulosin HCl 0.4 MG CAP PO SCH (09:05)
[2018-11-28] MEDS: cefTRIAXone\\ROCEPHIN 2 GM in Sodium Chloride 0.9% 100 ML IVPB SCH ×2 (09:06→20:28)
[2018-11-28] MEDS: Famotidine 20 MG TAB PO SCH ×2 (09:06→20:28)
[2018-11-28] MEDS: metFORMIN 500 MG TAB PO SCH ×2 (09:06→16:50)
[2018-11-28] MEDS: Aspirin Chewable 81 MG TAB PO SCH (09:06)
--- NOTE | 2018-11-28 11:45 | SPC ---
SONOGRAPHIC GUIDED LEFT UPPER EXTREMITY PICC PLACEMENT: DATE: 11/28/18 HISTORY: Endocarditis. FINDINGS: After explaining the procedure and answering all questions, the left upper extremity was prepped and draped in the usual sterile fashion. Sterile technique, buffered local anesthesia, sonographic guidan ce, and a 22 gauge needle were used to carefully access the left basilic vein. Standard technique was then used to place the tip of a dual lumen PICC so that the tip lies at the level of the superior ve na cava. The catheter was flushed and secured externally. The patient tolerated the procedure well an d was returned in unchanged condition. Fluoro Time: 0 seconds. IMPRESSION: Left upper extremity PICC is ready for use. POS: MARIAM
[2018-11-28] MEDS: Rivaroxaban 10 MG TAB PO SCH (13:22)
--- NOTE | 2018-11-28 13:35 | PDOC.PN ---
- Subjective Encounter Start Date: 11/28/18 Encounter Start Time: 09:20 Pt seen for followup re: infective endocarditis. Feels well, no complaints. - Objective Resuscitation Status - Order Detail: 11/24/18 10:35 Resuscitation Status Routine Resuscitation Status: FULL: Full Resuscitation Discussed with: JADE is son: Mr.James Stringer Vital Signs & Weight: Vital Signs (12 hours) Temp Pulse Resp BP Pulse Ox 11/28/18 12:00 97.9 F 95 17 120/77 95 11/28/18 08:00 98.1 F 91 17 148/79 H 92 L 11/28/18 05:51 120 H 11/28/18 04:00 98.2 F 48 L 20 124/71 95 Weight Admit Weight 176 lb Weight 179 lb 6.4 oz I&O: 11/27/18 11/28/18 11/29/18 06:59 06:59 06:59 Intake Total 1072 1380 Output Total 700 1120 Balance 372 260 Result Diagrams: 11/28/18 04:57 11/28/18 04:57 Additional Labs: Accuchecks 11/28/18 11/28/18 11/27/18 10:43 05:42 20:07 POC Glucose 198 H 184 H 200 H 11/27/18 17:39 POC Glucose 178 H Phys Exam - Physical Examination Constitutional: NAD HEENT: moist MMs Neck: supple Respiratory: clear to auscultation bilateral Cardiovascular: RRR Gastrointestinal: soft Neurological: moves all 4 limbs Psychiatric: normal affect Dx/Plan (1) Infective endocarditis Code(s): I33.0 - ACUTE AND SUBACUTE INFECTIVE ENDOCARDITIS Status: Acute Comment: Enterococcus fecalis bacteremia, vegetations on INO. PICC line placed , continue ampicillin an ceftriaxone. (2) Afib Code(s): I48.91 - UNSPECIFIED ATRIAL FIBRILLATION Status: Chronic Comment: on anticoagulation (3) HTN (hypertension) Code(s): I10 - ESSENTIAL (PRIMARY) HYPERTENSION Status: Chronic Comment: controlled (4) DM2 (diabetes mellitus, type 2) Status: Chronic Comment: relatively controlled (5) Dyslipidemia Code(s): E78.5 - HYPERLIPIDEMIA, UNSPECIFIED Status: Chronic Comment: on Lipitor - Plan * . Review of Systems - Review of Systems Respiratory: negative: Cough, Shortness of Breath, SOB with Excertion, Pleuritic Pain, Wheezing Cardiovascular: negative: chest pain, palpitations, orthopnea, paroxysmal nocturnal dyspnea, edema, light headedness - Medications/Allergies Allergies/Adverse Reactions: Allergies Allergy/AdvReac Type Severity Reaction Status Date / Time Sulfa (Sulfonamide Allergy Unknown Verified 11/24/18 14:45 Antibiotics) Medications: Current Medications Acetaminophen (Tylenol) 650 mg PO Q4H PRN PRN Reason: Headache/Fever/Mild Pain (1-3) Last Admin: 11/27/18 12:38 Dose: 650 mg Aspirin (Aspirin Chewable) 81 mg PO DAILY [facility] Last Admin: 11/28/18 09:06 Dose: 81 mg Atorvastatin Calcium (Lipitor) 20 mg PO HS [facility] Last Admin: 11/27/18 20:49 Dose: 20 mg Dextrose/Water (Dextrose 50%) 25 gm SLOW IVP PRN PRN PRN Reason: Hypoglycemia Diltiazem HCl (Cardizem Cd) 180 mg PO DAILY [facility] Last Admin: 11/28/18 09:05 Dose: 180 mg Ezetimibe (Zetia) 10 mg PO DAILY [facility] Last Admin: 11/28/18 09:05 Dose: 10 mg Famotidine (Pepcid) 20 mg PO BID [facility] Last Admin: 11/28/18 09:06 Dose: 20 mg Glimepiride (Amaryl) 2 mg PO QAM-[facility] Last Admin: 11/28/18 09:05 Dose: 2 mg Glucagon (Glucagon) 1 mg IM PRN PRN PRN Reason: Hypoglycemia Guaifenesin/Dextromethorphan (Robitussin Dm) 15 ml PO Q4H PRN PRN Reason: Cough Dextrose/Water (D5w) 1,000 mls @ 0 mls/hr IV .Q0M PRN PRN Reason: Hypoglycemia Sodium Chloride (Normal Saline 0.9%) 1,000 mls @ 50 mls/hr IV .Q20H [facility] Last Admin: 11/28/18 08:43 Dose: Not Given Ceftriaxone Sodium 2 gm/ (Sodium Chloride) 100 mls @ 200 mls/hr IVPB Q12HR [facility] Last Admin: 11/28/18 09:06 Dose: 100 mls Ampicillin Sodium 2 gm/ Sodium (Chloride) 100 mls @ 200 mls/hr IVPB 0000,0400, 0800,1200 [facility] Last Admin: 11/28/18 12:45 Dose: 100 mls Ampicillin Sodium 2 gm/ Sodium (Chloride) 100 mls @ 200 mls/hr IVPB 1600,2000 [facility] Last Admin: 11/27/18 20:40 Dose: 100 mls Diltiazem HCl 125 mg/Miscellaneous Medication 1 each/ Sodium Chloride 125 mls @ 5 mls/hr IVPB INF [facility]; Protocol Last Admin: 11/28/18 03:25 Dose: 125 mls Insulin Human Lispro (Humalog) 0 units SC .MODERATE SLIDING SC PRN PRN Reason: Moderate Correctional Scale Insulin Human Lispro (Humalog) 0 units SC .BEDTIME SLIDING SC PRN PRN Reason: Bedtime Correctional Scale Metformin HCl (Glucophage) 1,000 mg PO BID-[facility] Last Admin: 11/28/18 09:06 Dose: 1,000 mg Rivaroxaban (Xarelto) 20 mg PO 0600 [facility] Last Admin: 11/28/18 13:22 Dose: 20 mg Sodium Chloride (Flush - Normal Saline) 10 ml IVF Q12HR [facility] Last Admin: 11/28/18 09:07 Dose: Not Given Sodium Chloride (Flush - Normal Saline) 10 ml IVF PRN PRN PRN Reason: Saline Flush Tamsulosin HCl (Flomax) 0.4 mg PO DAILY [facility] Last Admin: 11/28/18 09:05 Dose: 0.4 mg
[2018-11-28] MEDS: Atorvastatin Calcium 20 MG TAB PO SCH (20:28)
[2018-11-29] MEDS: Ampicillin 2 GM in Sodium Chloride 0.9% 100 ML IVPB SCH ×5 (03:38→21:08)
[2018-11-29] MEDS: Rivaroxaban 10 MG TAB PO SCH (05:16)
[2018-11-29 06:00] LABS: #Eosinphils 0.1 thou/uL (0.0-0.7); #Monocytes 0.6 thou/uL (0.11-0.59); #Neutrophils 4.4 thou/uL (1.40-6.50); %Basophils 0.1 % (0.0-1.0); %Eosinophils 1.7 % (0.0-10.0); %Lymphocytes 16.4 % (21.0-51.0); %Monocytes 9.2 % (0.0-10.0); %Neutrophils 72.7 % (42.0-75.0); Hemoglobin 10.9 g/dL (14.0-18.0); Mean Corpuscular HGB CONC 32.2 g/dL (32.0-36.0); Mean Corpuscular Hemoglobin 32.8 pg (27.0-31.0); Mean Platelet Volume 7.6 fL (7.4-10.4); Platelet Count 133 thou/uL (130-400); Red Blood Cell (RBC) Count 3.33 mill/uL (4.70-6.10)
[2018-11-29 06:29] LABS: Anion Gap 11 mmol/L (10-20); BUN (Urea Nitrogen) 7 mg/dL (8.4-25.7); Calc. Creatinine Clearance 108 mL/min (70-130); Calcium 8.6 mg/dL (7.8-10.44); Carbon Dioxide 24 mmol/L (23-31); Chloride 108 mmol/L (98-107); Estimated GFR-MDRD Greater than 90; Glucose 192 mg/dL (83-110); Potassium 3.5 mmol/L (3.5-5.1); Sodium 139 mmol/L (136-145)
--- NOTE | 2018-11-29 07:31 | OP ---
DATE OF PROCEDURE: 11/26/2018 PREPROCEDURE DIAGNOSIS: Endocarditis. POSTPROCEDURE DIAGNOSIS: Endocarditis. PROCEDURE PERFORMED: Transesophageal echocardiography. INDICATIONS FOR PROCEDURE: I consented Mr. Stringer for the procedure. His son was present during the discussion. Risks included, but not limited to the following: Damage to teeth, mouth, back of throat, damage to esophagus requiring emergency surgery as well as reaction to medications. All questions were answered. Given the above, the patient agreed to proceed above procedure. Anesthesia was used for conscious sedation. There was difficulty in passing the probe. The patient having intermittent bouts of hypoxia. After he was stabilized, the probe passed easily into esophagus. FINDINGS: Overall, INO quality is limited. likely at off axis and difficult to assess. Mitral valve was well visualized in the 0 to 20 degree axis. There was a vegetation present on the posterior leaflet at 1 cm in length. The aortic valve is well visualized. There is aortic calcification present with no masses or vegetations. The tricuspid valve and pulmonic valve are free of vegetation. IMPRESSION: 1. Limited study. 2. Vegetation present on the posterior mitral leaflet with a length of 1.0 cm. I discussed with Dr. Zev Hall. Job ID: [id number]
[2018-11-29] MEDS: metFORMIN 500 MG TAB PO SCH ×2 (08:44→17:05)
[2018-11-29] MEDS: Glimepiride 2 MG TAB PO SCH (08:45)
[2018-11-29] MEDS: Tamsulosin HCl 0.4 MG CAP PO SCH (08:45)
[2018-11-29] MEDS: Famotidine 20 MG TAB PO SCH ×2 (08:45→21:07)
[2018-11-29] MEDS: Digoxin 0.125 MG TAB PO SCH (08:45)
[2018-11-29] MEDS: Ezetimibe 10 MG TAB PO SCH (08:45)
[2018-11-29] MEDS: cefTRIAXone\\ROCEPHIN 2 GM in Sodium Chloride 0.9% 100 ML IVPB SCH ×2 (08:46→21:06)
[2018-11-29] MEDS: Aspirin Chewable 81 MG TAB PO SCH (08:46)
[2018-11-29] MEDS ORDERED: cefTRIAXone\\ROCEPHIN 2 GM VIAL ONE (08:54)
[2018-11-29] MEDS ORDERED: Clopidogrel Bisulfate 75 MG TAB ONE (11:56)
--- NOTE | 2018-11-29 12:01 | PQF ---
[employer] Reports [employer] SHANNON Baeza DAVID [phone] [facility]295 [id number] CLINICAL DOCUMENTATION IMPROVEMENT CLARIFICATION FORM: ICD-10 Updated PLEASE DO AN ADDENDUM TO THE PROGRESS NOTE WITH ANY DOCUMENTATION UPDATES OR ADDITIONS AND CARRY THROUGH TO DC SUMMARY. THANK YOU. DATE: 11/29/18 ATTN: DR. Nataly MUNOZ Please exercise your independent, professional judgment in responding to the clarification form. Clinical indicators are provided on the bottom of this form for your review. Please check appropriate box(es): [ ] Sepsis due to: Endocarditis [ ] Localized infection without sepsis [ ] Other diagnosis [ ] Unable to determine In addition, please specify: Present on Admission (POA): [ ] Yes [ ] No [ ] Unable to determine For continuity of documentation, please document condition throughout progress notes and discharge summary. Thank You. CLINICAL INDICATORS - SIGNS / SYMPTOMS / LABS ON ADMISSION 11/24 ED : PULSE 92-98, R 21-25 ON ADMISSION 11/24 : WBC 12.3, Bands 27 11/24 POSITIVE BLOOD CULTURES FOR ENTEROCOCCUS FAECALIS 11/27 PN (ALEXANDER) 1) INFECTIVE ENDOCARDITIS- ACUTE AND SUBACUTE ENDOCARDITIS, ENTEROCOCCUS FECALIS BACTEREMIA, VEGETATIONS ON INO. 11/28 PN (BENITA) ASSESSMENT 2. ENTEROCOCCUS SEPSIS RISK FACTORS 11/25 PN (ALEXANDER) DX/PLAN: 1) Bacteremia STATUS (ACUTE), 4) DM2 STATUS (CHRONIC) HX of Mitral Valve Repair TREATMENTS: Ampicillin Iv (11/25- present) Rocephin IV (11/25- present) NS IV (11/24- present) 11/24 Cardiology Consult 11/24 INO 11/25 Infectious Disease consult THANK YOU! SHAHZAD (This form is maintained as a part of the permanent medical record) 2014 [employer]. All Rights Reserved [email or web address] [phone] [email or web address]
--- NOTE | 2018-11-29 13:28 | PDOC.PN ---
- Subjective Encounter Start Date: 11/29/18 Encounter Start Time: 08:20 Pt seen for followup re: infective endocarditis. Feels well. - Objective Resuscitation Status - Order Detail: 11/24/18 10:35 Resuscitation Status Routine Resuscitation Status: FULL: Full Resuscitation Discussed with: JADE is son: Mr.James Myke PINA Reviewed: Yes Vital Signs & Weight: Vital Signs (12 hours) Temp Pulse Resp BP Pulse Ox 11/29/18 12:00 97.8 F 94 17 140/85 94 L 11/29/18 08:45 90 11/29/18 08:00 98.1 F 93 18 146/84 H 95 11/29/18 03:53 90 18 115/60 Weight Admit Weight 176 lb Weight 179 lb 6.4 oz I&O: 11/28/18 11/29/18 11/30/18 06:59 06:59 06:59 Intake Total 1380 1860 Output Total 1120 1200 Balance 260 660 Result Diagrams: 11/29/18 05:36 11/29/18 05:36 Additional Labs: Accuchecks 11/29/18 11/29/18 11/28/18 11:16 05:45 20:22 POC Glucose 185 H 218 H 221 H 11/28/18 17:03 POC Glucose 194 H EKG Reviewed by me: Yes (Tele: atrial flutter) Phys Exam - Physical Examination Constitutional: NAD HEENT: moist MMs Neck: supple Respiratory: no wheezing Cardiovascular: RRR Neurological: moves all 4 limbs Psychiatric: normal affect Dx/Plan (1) Infective endocarditis Code(s): I33.0 - ACUTE AND SUBACUTE INFECTIVE ENDOCARDITIS Status: Acute Comment: continue ampicillin and ceftriaxone. (2) Afib Code(s): I48.91 - UNSPECIFIED ATRIAL FIBRILLATION Status: Chronic Comment: continue anticoagulation (3) HTN (hypertension) Code(s): I10 - ESSENTIAL (PRIMARY) HYPERTENSION Status: Chronic Comment: controlled (4) DM2 (diabetes mellitus, type 2) Status: Chronic Comment: relatively controlled (5) Dyslipidemia Code(s): E78.5 - HYPERLIPIDEMIA, UNSPECIFIED Status: Chronic Comment: continue Lipitor (6) Sepsis Code(s): A41.9 - SEPSIS, UNSPECIFIED ORGANISM Status: Resolved Comment: Due to endocarditis, present on admission - Plan * . Review of Systems - Review of Systems Respiratory: negative: Cough, Shortness of Breath, SOB with Excertion, Pleuritic Pain, Wheezing Cardiovascular: negative: chest pain, palpitations, orthopnea, paroxysmal nocturnal dyspnea, edema, light headedness - Medications/Allergies Allergies/Adverse Reactions: Allergies Allergy/AdvReac Type Severity Reaction Status Date / Time Sulfa (Sulfonamide Allergy Unknown Verified 11/24/18 14:45 Antibiotics) Medications: Current Medications Acetaminophen (Tylenol) 650 mg PO Q4H PRN PRN Reason: Headache/Fever/Mild Pain (1-3) Last Admin: 11/27/18 12:38 Dose: 650 mg Aspirin (Aspirin Chewable) 81 mg PO DAILY [facility] Last Admin: 11/29/18 08:46 Dose: 81 mg Atorvastatin Calcium (Lipitor) 20 mg PO HS [facility] Last Admin: 11/28/18 20:28 Dose: 20 mg Dextrose/Water (Dextrose 50%) 25 gm SLOW IVP PRN PRN PRN Reason: Hypoglycemia Digoxin (Lanoxin) 0.125 mg PO DAILY [facility] Last Admin: 11/29/18 08:45 Dose: 0.125 mg Diltiazem HCl (Cardizem Cd) 180 mg PO DAILY [facility] Last Admin: 11/29/18 08:45 Dose: 180 mg Ezetimibe (Zetia) 10 mg PO DAILY [facility] Last Admin: 11/29/18 08:45 Dose: 10 mg Famotidine (Pepcid) 20 mg PO BID [facility] Last Admin: 11/29/18 08:45 Dose: 20 mg Glimepiride (Amaryl) 2 mg PO QA-[facility] Last Admin: 11/29/18 08:45 Dose: 2 mg Glucagon (Glucagon) 1 mg IM PRN PRN PRN Reason: Hypoglycemia Guaifenesin/Dextromethorphan (Robitussin Dm) 15 ml PO Q4H PRN PRN Reason: Cough Dextrose/Water (D5w) 1,000 mls @ 0 mls/hr IV .Q0M PRN PRN Reason: Hypoglycemia Ceftriaxone Sodium 2 gm/ (Sodium Chloride) 100 mls @ 200 mls/hr IVPB Q12HR [facility] Last Admin: 11/29/18 08:46 Dose: 100 mls Ampicillin Sodium 2 gm/ Sodium (Chloride) 100 mls @ 200 mls/hr IVPB 0000,0400, 0800,1200 [facility] Last Admin: 11/29/18 12:12 Dose: 100 mls Ampicillin Sodium 2 gm/ Sodium (Chloride) 100 mls @ 200 mls/hr IVPB 1600,2000 [facility] Last Admin: 11/28/18 20:27 Dose: 100 mls Diltiazem HCl 125 mg/Miscellaneous Medication 1 each/ Sodium Chloride 125 mls @ 5 mls/hr IVPB INF [facility]; Protocol Last Admin: 11/28/18 23:59 Dose: 125 mls Insulin Human Lispro (Humalog) 0 units SC .MODERATE SLIDING SC PRN PRN Reason: Moderate Correctional Scale Insulin Human Lispro (Humalog) 0 units SC .BEDTIME SLIDING SC PRN PRN Reason: Bedtime Correctional Scale Metformin HCl (Glucophage) 1,000 mg PO BID-[facility] Last Admin: 11/29/18 08:44 Dose: 1,000 mg Rivaroxaban (Xarelto) 20 mg PO 0600 [facility] Last Admin: 11/29/18 05:16 Dose: 20 mg Sodium Chloride (Flush - Normal Saline) 10 ml IVF Q12HR [facility] Last Admin: 11/29/18 08:46 Dose: Not Given Sodium Chloride (Flush - Normal Saline) 10 ml IVF PRN PRN PRN Reason: Saline Flush Tamsulosin HCl (Flomax) 0.4 mg PO DAILY [facility] Last Admin: 11/29/18 08:45 Dose: 0.4 mg
--- NOTE | 2018-11-29 15:50 | PDOC.CTH ---
Cardiology Progress Note - Subjective EP PROGRESS NOTE: 11/29/18 Reqyuested to see again as follow up for atypical atrial flutter with RVR. Developed AFL with 1:1 AV conduction requiring resumed IV diltiazem. No other cardiac concerns or complaints today. He is feeling well but is concerned about the positive blood cultures and vegetation per [facility] last week. PICK line placed. - Objective Vital Signs Temp Pulse Resp BP Pulse Ox 11/29/18 12:00 97.8 F 94 17 140/85 94 L 11/29/18 08:45 90 11/29/18 08:00 98.1 F 93 18 146/84 H 95 11/29/18 03:53 90 18 115/60 Admit Weight 176 lb Weight 179 lb 6.4 oz 11/28/18 11/29/18 11/30/18 06:59 06:59 06:59 Intake Total 1380 1860 Output Total 1120 1200 Balance 260 660 - Physical Examination General/Neuro: alert & oriented x3, NAD Neck: no JVD present Lungs: CTA Heart: RRR Abdomen: no HSM, soft - Telemetry Telemetry Rhythm: AFL w 1:1 AV conduction -> 2:1 AV conduction - Labs Result Diagrams: 11/29/18 05:36 11/29/18 05:36 Troponin/CKMB Troponin I 0.015 ng/mL (< 0.028) 11/24/18 13:21 - Assessment/Plan 1. Atrial arrhythmias -s/p PVI in remote past. Now with chronic atypical atrial flutter. Came in with 1:1 RVR possibly provoked by Bacteremia/sepsis. 2. CHADS2-VASC: 4 - chronic anticoagulation with xarelto 3. Endocarditis with Positive blood cultures and vegetation by [facility]. - infectious process being evaluated by Kyle CASTRO. Will increqase PO diltiazem CD 240mg QD today. VR <100. Will taper off diltiazem gtt and continue with PO rate control. Continue Xarelto for OAC.
[2018-11-29] MEDS ORDERED: Diltiazem HCl SR 60 mg Capsule PO SCH (21:00)
[2018-11-29] MEDS: Atorvastatin Calcium 20 MG TAB PO SCH (21:07)
[2018-11-30] MEDS: Ampicillin 2 GM in Sodium Chloride 0.9% 100 ML IVPB SCH ×7 (00:12→23:39)
[2018-11-30] MEDS: Diltiazem HCl 125 MG, Admixture Fee 1 EACH in Sodium Chloride 0.9% 100 ML IVPB SCH (03:44)
[2018-11-30 05:36] LABS: #Eosinphils 0.1 thou/uL (0.0-0.7); #Monocytes 0.5 thou/uL (0.11-0.59); #Neutrophils 4.5 thou/uL (1.40-6.50); %Basophils 0.1 % (0.0-1.0); %Eosinophils 1.7 % (0.0-10.0); %Lymphocytes 15.9 % (21.0-51.0); %Monocytes 8.4 % (0.0-10.0); %Neutrophils 73.9 % (42.0-75.0); Hemoglobin 10.8 g/dL (14.0-18.0); Mean Corpuscular HGB CONC 32.4 g/dL (32.0-36.0); Mean Corpuscular Hemoglobin 32.9 pg (27.0-31.0); Mean Platelet Volume 7.3 fL (7.4-10.4); Platelet Count 137 thou/uL (130-400); Red Blood Cell (RBC) Count 3.28 mill/uL (4.70-6.10); White Blood Cell (WBC) Count 6.1 thou/uL (4.8-10.8)
[2018-11-30 05:55] LABS: Anion Gap 13 mmol/L (10-20); BUN (Urea Nitrogen) 7 mg/dL (8.4-25.7); Calc. Creatinine Clearance 109 mL/min (70-130); Calcium 8.8 mg/dL (7.8-10.44); Carbon Dioxide 23 mmol/L (23-31); Chloride 107 mmol/L (98-107); Estimated GFR-MDRD Greater than 90; Glucose 191 mg/dL (83-110); Potassium 3.5 mmol/L (3.5-5.1); Sodium 139 mmol/L (136-145)
[2018-11-30] MEDS: Rivaroxaban 10 MG TAB PO SCH (06:16)
[2018-11-30] MEDS: cefTRIAXone\\ROCEPHIN 2 GM in Sodium Chloride 0.9% 100 ML IVPB SCH ×3 (08:45→23:14)
[2018-11-30] MEDS: metFORMIN 500 MG TAB PO SCH ×2 (08:45→16:11)
[2018-11-30] MEDS: Glimepiride 2 MG TAB PO SCH (08:45)
[2018-11-30] MEDS: Famotidine 20 MG TAB PO SCH ×2 (08:46→23:37)
[2018-11-30] MEDS: Ezetimibe 10 MG TAB PO SCH (08:46)
[2018-11-30] MEDS: Digoxin 0.125 MG TAB PO SCH (08:46)
[2018-11-30] MEDS: Aspirin Chewable 81 MG TAB PO SCH (08:46)
[2018-11-30] MEDS: Tamsulosin HCl 0.4 MG CAP PO SCH (08:47)
[2018-11-30] MEDS ORDERED: Rocuronium Bromide 10 MG/ML (10ML VIAL) ONE ×2 (11:11→12:40)
[2018-11-30] MEDS ORDERED: PHENYLEPHRINE-NS 100 MCG/ML 10 ML SYRINGE ONE (12:40)
--- NOTE | 2018-11-30 12:44 | PDOC.PN ---
- Subjective Encounter Start Date: 11/30/18 Encounter Start Time: 07:20 Pt seen for followup re: acute infective endocarditis. Says he feels fine. - Objective Resuscitation Status - Order Detail: 11/24/18 10:35 Resuscitation Status Routine Resuscitation Status: FULL: Full Resuscitation Discussed with: ALEJANDRACandace is son: Mr.James Myke PINA Reviewed: Yes Vital Signs & Weight: Vital Signs (12 hours) Temp Pulse Resp BP Pulse Ox 11/30/18 11:19 97.4 F L 94 18 135/82 94 L 11/30/18 08:36 97.4 F L 95 17 130/82 94 L 11/30/18 04:00 97.9 F 90 18 114/60 94 L Weight Admit Weight 176 lb Weight 179 lb 6.4 oz I&O: 11/29/18 11/30/18 12/01/18 06:59 06:59 06:59 Intake Total 1860 1420 Output Total 1200 1800 Balance 660 -380 Result Diagrams: 11/30/18 05:09 11/30/18 05:09 Additional Labs: Accuchecks 11/30/18 11/30/18 11/29/18 10:50 05:13 20:04 POC Glucose 221 H 198 H 220 H 11/29/18 17:10 POC Glucose 179 H EKG Reviewed by me: Yes (Tele: tito steward) Phys Exam - Physical Examination Constitutional: NAD HEENT: moist MMs Neck: supple Respiratory: clear to auscultation bilateral Cardiovascular: RRR Gastrointestinal: soft Neurological: moves all 4 limbs Psychiatric: normal affect Dx/Plan (1) Infective endocarditis Code(s): I33.0 - ACUTE AND SUBACUTE INFECTIVE ENDOCARDITIS Status: Acute Comment: on ampicillin and ceftriaxone via PICC line. (2) Afib Code(s): I48.91 - UNSPECIFIED ATRIAL FIBRILLATION Status: Chronic Comment: continue apixaban, try to wean off of cardizem drip (3) HTN (hypertension) Code(s): I10 - ESSENTIAL (PRIMARY) HYPERTENSION Status: Chronic Comment: controlled (4) DM2 (diabetes mellitus, type 2) Status: Chronic Comment: relatively controlled (5) Dyslipidemia Code(s): E78.5 - HYPERLIPIDEMIA, UNSPECIFIED Status: Chronic Comment: on Lipitor (6) Sepsis Code(s): A41.9 - SEPSIS, UNSPECIFIED ORGANISM Status: Resolved - Plan * . Review of Systems - Review of Systems Cardiovascular: negative: chest pain, palpitations, orthopnea, paroxysmal nocturnal dyspnea, edema, light headedness Gastrointestinal: negative: Nausea, Vomiting, Abdominal Pain, Diarrhea, Constipation, Melena, Hematochezia - Medications/Allergies Allergies/Adverse Reactions: Allergies Allergy/AdvReac Type Severity Reaction Status Date / Time Sulfa (Sulfonamide Allergy Unknown Verified 11/24/18 14:45 Antibiotics) Medications: Current Medications Acetaminophen (Tylenol) 650 mg PO Q4H PRN PRN Reason: Headache/Fever/Mild Pain (1-3) Last Admin: 11/27/18 12:38 Dose: 650 mg Aspirin (Aspirin Chewable) 81 mg PO DAILY [facility] Last Admin: 11/30/18 08:46 Dose: 81 mg Atorvastatin Calcium (Lipitor) 20 mg PO HS [facility] Last Admin: 11/29/18 21:07 Dose: 20 mg Dextrose/Water (Dextrose 50%) 25 gm SLOW IVP PRN PRN PRN Reason: Hypoglycemia Digoxin (Lanoxin) 0.125 mg PO DAILY [facility] Last Admin: 11/30/18 08:46 Dose: 0.125 mg Diltiazem HCl (Cardizem Cd) 240 mg PO DAILY [facility] Last Admin: 11/30/18 08:46 Dose: 240 mg Ezetimibe (Zetia) 10 mg PO DAILY [facility] Last Admin: 11/30/18 08:46 Dose: 10 mg Famotidine (Pepcid) 20 mg PO BID [facility] Last Admin: 11/30/18 08:46 Dose: 20 mg Glimepiride (Amaryl) 2 mg PO QA-[facility] Last Admin: 11/30/18 08:45 Dose: 2 mg Glucagon (Glucagon) 1 mg IM PRN PRN PRN Reason: Hypoglycemia Guaifenesin/Dextromethorphan (Robitussin Dm) 15 ml PO Q4H PRN PRN Reason: Cough Dextrose/Water (D5w) 1,000 mls @ 0 mls/hr IV .Q0M PRN PRN Reason: Hypoglycemia Ceftriaxone Sodium 2 gm/ (Sodium Chloride) 100 mls @ 200 mls/hr IVPB Q12HR [facility] Last Admin: 11/30/18 10:17 Dose: 100 mls Ampicillin Sodium 2 gm/ Sodium (Chloride) 100 mls @ 200 mls/hr IVPB 0000,0400, 0800,1200 [facility] Last Admin: 11/30/18 11:17 Dose: 100 mls Ampicillin Sodium 2 gm/ Sodium (Chloride) 100 mls @ 200 mls/hr IVPB 1600,2000 [facility] Last Admin: 11/29/18 21:08 Dose: 100 mls Diltiazem HCl 125 mg/Miscellaneous Medication 1 each/ Sodium Chloride 125 mls @ 5 mls/hr IVPB INF [facility]; Protocol Last Admin: 11/30/18 03:44 Dose: 125 mls Insulin Human Lispro (Humalog) 0 units SC .MODERATE SLIDING SC PRN PRN Reason: Moderate Correctional Scale Insulin Human Lispro (Humalog) 0 units SC .BEDTIME SLIDING SC PRN PRN Reason: Bedtime Correctional Scale Metformin HCl (Glucophage) 1,000 mg PO BID-[facility] Last Admin: 11/30/18 08:45 Dose: 1,000 mg Rivaroxaban (Xarelto) 20 mg PO 0600 [facility] Last Admin: 11/30/18 06:16 Dose: 20 mg Sodium Chloride (Flush - Normal Saline) 10 ml IVF Q12HR [facility] Last Admin: 11/30/18 08:46 Dose: 10 ml Sodium Chloride (Flush - Normal Saline) 10 ml IVF PRN PRN PRN Reason: Saline Flush Tamsulosin HCl (Flomax) 0.4 mg PO DAILY [facility] Last Admin: 11/30/18 08:47 Dose: 0.4 mg
--- NOTE | 2018-11-30 15:52 | PDOC.CTH ---
Cardiology Progress Note - Subjective EP PROGRESS NOTE: 11/30/18 Requested to see again as follow up for atypical atrial flutter with RVR. Developed AFL with 1:1 AV conduction requiring resumed IV diltiazem. No other cardiac concerns or complaints today. He is feeling well but is concerned about the positive blood cultures and vegetation per [facility] last week. PICC line placed. HR has been stable over HS. No new cardiac concerns or complaints. - Objective Vital Signs Temp Pulse Resp BP Pulse Ox 11/30/18 15:31 97.9 F 94 19 124/73 93 L 11/30/18 11:19 97.4 F L 94 18 135/82 94 L 11/30/18 08:36 97.4 F L 95 17 130/82 94 L 11/30/18 04:00 97.9 F 90 18 114/60 94 L Admit Weight 176 lb Weight 179 lb 6.4 oz 11/29/18 11/30/18 12/01/18 06:59 06:59 06:59 Intake Total 1860 1420 Output Total 1200 1800 Balance 660 -380 - Physical Examination General/Neuro: alert & oriented x3, NAD Neck: carotid US brisk, no JVD present Lungs: CTA, unlabored respirations Heart: PMI normal Abdomen: NT/ND, soft Extremities: + edema B - Telemetry Telemetry Rhythm: atrial flutter VR 90-110 - Labs Result Diagrams: 11/30/18 05:09 11/30/18 05:09 Troponin/CKMB Troponin I 0.015 ng/mL (< 0.028) 11/24/18 13:21 - Assessment/Plan 1. Atrial arrhythmias -s/p PVI in remote past. Now with chronic atypical atrial flutter. Came in with 1:1 RVR possibly provoked by Bacteremia/sepsis. back on dilt gtt and increased PO dilt on 11/29. HR stable for past 24 hours but remains 90-100 2. CHADS2-VASC: 4 - chronic anticoagulation with xarelto 3. Endocarditis with Positive blood cultures and vegetation by [facility]. - infectious process being evaluated by Kyle CASTRO. VR <100. Will taper off diltiazem gtt and continue with PO rate control with diltiazem CD 240mg QD. Continue Xarelto for OAC.
--- NOTE | 2018-11-30 16:02 | PRG ---
DATE OF SERVICE: 11/30/2018 SUBJECTIVE: Mr. Stringer is having some tachyarrhythmias and had to have diltiazem dose upgraded, otherwise no cough, no chest pain, no abdominal pain or diarrhea. OBJECTIVE: VITAL SIGNS: He has been afebrile. HEENT: Ocular movements are conjugate. LUNGS: Clear. HEART: S1 and S2. Regular rate. ABDOMEN: Soft, not distended. LABORATORY DATA: White cell count 6.1, hemoglobin 10.8, and platelets 137. Creatinine 0.64, sodium 139. We will need to repeat his blood cultures. MEDICATIONS: He is currently on ampicillin q.4 plus Rocephin q.12. ASSESSMENT AND DISCUSSION: 1. Supraventricular tachycardia, prior ablations. 2. Enterococcus faecalis mitral valve endocarditis. PICC line has been inserted and now waiting on the tachyarrhythmia to be controlled, so he can be discharged. It looks like he is going to the swing bed in [place] and the end date of therapy is January 07. Weekly labs. Job ID: [id number]
[2018-11-30 20:15] LABS: #Eosinphils 0.1 thou/uL (0.0-0.7); #Lymphocytes 1.7 thou/uL (1.20-3.40); #Neutrophils 5.8 thou/uL (1.40-6.50); %Basophils 0.2 % (0.0-1.0); %Eosinophils 1.5 % (0.0-10.0); %Lymphocytes 19.5 % (21.0-51.0); %Monocytes 11.1 % (0.0-10.0); %Neutrophils 67.7 % (42.0-75.0); Mean Corpuscular HGB CONC 32.9 g/dL (32.0-36.0); Mean Corpuscular Hemoglobin 33.1 pg (27.0-31.0); Platelet Count 179 thou/uL (130-400); RBC Distribution Width 14.2 % (11.5-14.5); Red Blood Cell (RBC) Count 3.61 mill/uL (4.70-6.10); White Blood Cell (WBC) Count 8.6 thou/uL (4.8-10.8)
[2018-11-30 20:23] LABS: INR-International Normal Ratio 1.6; PTT 32.7 SEC (22.9-36.1); Prothrombin Time 18.9 SEC (12.0-14.7)
[2018-11-30 20:29] LABS: ALT (SGPT) 38 U/L (8-55); AST (SGOT) 33 U/L (5-34); Albumin 3.8 g/dL (3.4-4.8); Alkaline Phosphatase 68 U/L (40-150); Anion Gap 16 mmol/L (10-20); BUN (Urea Nitrogen) 9 mg/dL (8.4-25.7); Bilirubin, Total 0.4 mg/dL (0.2-1.2); CK (CPK) 26 U/L (30-200); Calc. Creatinine Clearance 91 mL/min (70-130); Calcium 9.4 mg/dL (7.8-10.44); Carbon Dioxide 23 mmol/L (23-31); Chloride 105 mmol/L (98-107); Estimated GFR-MDRD Greater than 90; Globulin 3.5 g/dL (2.4-3.5); Glucose 201 mg/dL (83-110); Potassium 3.6 mmol/L (3.5-5.1); Protein, Total 7.3 g/dL (5.8-8.1); Sodium 140 mmol/L (136-145)
--- NOTE | 2018-11-30 20:30 | CT ---
NONCONTRAST HEAD CT 11/30/18 HISTORY: Severe headache. Unresponsive. COMPARISON: None. FINDINGS: There is evidence of intra and extra-axial hemorrhage. There is a hematoma in the left occipital par ietal region measuring 2.1 x 2.5 cm. There is extra-axial blood along the left frontal, temporal, par ietal convexity as well as the right parietal convexity, right temporal and frontal convexity. Small amount of blood along the parafalcine region is noted. This extra-axial blood has slightly mixed atte nuation and may represent hemorrhage that is acute upon subacute hemorrhage. There is sulcal effaceme nt and mass effect upon the left cerebrum. There is some mass effect upon the left ventricle with ent rapment of the temporal horn of the right lateral ventricle. There is 0.8 cm of left to right subfalc ine herniation. Calvarium is intact. Adequate aeration of the sinuses and mastoid air cells. Possible subtle loss of pratt-white matter differentiation involving the left temporal lobe which may be due to a component of ischemia, possibly due to extra-axial hemorrhage causing mass effect. There appears to be hypoattenuation involving the anterior right parafalcine region which may represe nt a subacute subdural collection. IMPRESSION: 1. Intraparenchymal and extra-axial hemorrhages. 2. Mass effect upon the left cerebrum secondary to extra-axial hematoma. There is left to right subfalcine herniation. Sulcal effacement of the left cerebrum. 3. Entrapment of the lateral horn of the right lateral ventricle. 4. Results of the study discussed with Dr. Griffiths 11/30/18 at 8:19 p.m. Code CR POS: [facility]
[2018-11-30] MEDS ORDERED: HUMAN PROTHROMBIN COMPLX IV SCH (20:45)
[2018-11-30] MEDS ORDERED: ADMIXTURE FEE IV SCH (20:45)
[2018-11-30] MEDS ORDERED: Bacitracin Zinc Ointment 30 gm TUBE ONE (21:16)
[2018-11-30] MEDS ORDERED: Thrombin 5000 UNITS/5 ML VIAL ONE (21:16)
[2018-11-30] MEDS ORDERED: Lidocaine 0.5%/Epinephrine 1:200,000 50 ml Vial ONE (21:16)
[2018-11-30] MEDS ORDERED: Sodium Chloride 0.9% 20 ML ONE (21:16)
[2018-11-30] MEDS ORDERED: Fentanyl 100 MCG/2 ML VIAL ONE (21:20)
--- NOTE | 2018-11-30 21:31 | RAD ---
CHEST ONE VIEW: 11/30/18 COMPARISON: 11/24/18. HISTORY: Intubation. FINDINGS: Endotracheal tube at the level of the clavicles. Nasogastric tube extends down the diaphragm. Distal tip is not seen. Overlying monitoring specialist leads and pacer pad is noted. Left sided PICC line termina ifrah in the expected region of the superior vena cava. There are sternotomy wires. Normal cardiac silh ouette. Pulmonary vessels are upper normal. Chronic changes in the lung parenchyma, without consolida tion or mass. No pneumothorax or acute osseous abnormalities. IMPRESSION: No acute cardiopulmonary process. POS: [facility]
[2018-11-30] MEDS: Atorvastatin Calcium 20 MG TAB PO SCH (21:36)
[2018-11-30] MEDS ORDERED: cefTRIAXone\\ROCEPHIN 1 GM VIAL ONE (22:11)
[2018-11-30] MEDS ORDERED: Morphine 2 MG/ML SYRINGE SLOW IVP PRN (23:18)
[2018-11-30] MEDS ORDERED: fentaNYL Citrate/PF 2,000 MCG in Sodium Chloride 0.9% 60 ML IV SCH (23:18)
[2018-11-30] MEDS ORDERED: Fentanyl CADD 250 ML IVPB SCH (23:18)
[2018-11-30] MEDS ORDERED: Fentanyl BOLUS 250 ML IVPB PRN (23:18)
[2018-11-30] MEDS ORDERED: Propofol BOLUS 1,000 MG/100 ML VIAL IV PRN (23:18)
[2018-11-30] MEDS ORDERED: Lorazepam 2 MG/ML VIAL SLOW IVP PRN (23:18)
[2018-11-30] MEDS ORDERED: Propofol 1,000 MG/100 ML VIAL IV PRN (23:18)
[2018-11-30] MEDS ORDERED: DISCONTINUE PREVIOUS NARCOTIC PAIN MEDICATIONS AND BENZODIAZEPINES FS SCH (23:18)
[2018-11-30 23:27] LABS: Actual Bicarbonate (HCO3a) 24.9 mEq/L (22-28); Base Excess (BEa) 1.4 mEq/L (-2.0 to +3.0); CO2 Tension 35.4 mmHg (35.0-45.0); Calcium, Ionized 1.23 mmol/L (1.12-1.30); Carboxyhemoglobin (COHb) 0.5 gm% (0.0-3.0); Hemoglobin (Hb) 10.7 g/dL (14.0-18.0); O2 Tension (PaO2) 325.6 mmHg (> 70.0); Potassium - ABG Lab 3.56 mmol/L (3.70-5.30); pH, Arterial 7.47 (7.35-7.45)
--- NOTE | 2018-11-30 23:29 | PDOC.EVN ---
Event Note - Event Note Event Note: Code green called (please see code sheet for details) since patient was in severe headache followed by sudden unset of LOC, pt was found to have acute large intracranial bleeding, neurosurgery was called for optometric assistant with our patient, Vivek given due to use of xeralto, pt. also went into a flutter vs psvt @ 180 persistently, needing syncronized cardioversion , rythm back to normal, cardiology is already on the case, pt got intubated for airway protection, we will consult pulmonary and follow recommendations.
[2018-11-30 23:31] LABS: Puncture Site RRADIAL
[2018-11-30 23:50] VITALS: TEMP 96.1
[2018-11-30] MEDS ORDERED: Atorvastatin Calcium 20 MG TAB PER TUBE SCH (23:55)
[2018-11-30] MEDS ORDERED: Digoxin 0.125 MG TAB PER TUBE SCH (23:55)
[2018-11-30] MEDS ORDERED: Famotidine 20 MG TAB PER TUBE SCH (23:55)
[2018-11-30] MEDS ORDERED: Ezetimibe 10 MG TAB PER TUBE SCH (23:55)
--- NOTE | 2018-12-01 00:02 | PRG ---
DATE OF SERVICE: 11/30/2018 I examined the patient on route to the operating room. I spoke with the patient's family on the phone and I reviewed records and imaging. I agreed with the documentation of Yolanda Strauss PA-C dated 11/30/2018. Briefly, Casa Stringer is a 77-year-old gentleman, who was at [facility] with leukocytosis, fevers and found to be in atrial fibrillation/atrial flutter with cardiac vegetations and infective endocarditis. He was due to transfer to rehab when he had acute onset headache while in the hospital today. He was on Eliquis for both vegetations and atrial fibrillation. He rapidly deteriorated neurologically. Prior to intubation, he was examined by the Neurosurgery Service and found to be extensor posturing. He had sluggish, but reactive pupils. He did not have much in the way of corneal reflexes, but he did have an oculocephalic reflex and a gag. He was intubated and taken for CT imaging. Head imaging revealed acute on subacute subdural hematoma over the entire left convexity interhemispheric and a small amount on the right. There was a hemorrhagic region in the parietal lobe on the left side as well. There was significant mass effect and midline shift. Part of the blood was hypo-coagulated and pratt in nature and part was a thin chronic fluid collection as well. Mr. Stringer likely had strokes from his endocarditis. One of the strokes seemed to be near the cortex and probably had hemorrhagic conversion. This parietal lobe infarct was hemorrhagic and bloodsome into the subdural space , in my view. Other entities are less likely. They are not impossible, however. Nonetheless, he has very poor neurological condition for his operation. He has been treated with Kcentra in the operating room, we decided to put a suction-assisted subdural drainage device rather than a large craniotomy with high risk for continued bleeding and . On the phone I talked to Bakari Stringer, the patient's son. I explained the conundrum we faced with the optimal operation being extremely high risk. Middle of the road approach would be attempted twist-drill craniotomy and placement of the subdural drain system under negative pressure and hope that the thin blood could be evacuated and give some space while the reversal agents prevent any further bleeding. Informed Consent: I discussed indications, risks, benefits, alternatives, and expected outcomes from surgery. The risks discussed included, but were not limited to, failure of surgery, increased bleeding, , permanent neurological deficit, halfway dependence, dependence for care, and cardiopulmonary complications of anesthesia including . He understands the risks and wants to proceed. Mr. Stringer's son wants me to do the best I can to keep his heart and lungs functional so that they can make a 4-hour drive and his daughter (a patient's granddaughter ,) come say goodbye. He understands that even in the best case scenario, he would likely be dependent for care, and he is ready to withdraw support should he not make significant improvement. Job ID: [id number] [facility]
--- NOTE | 2018-12-01 00:20 | PDOC.EVN ---
Event Note - Event Note Event Note: abg reviewed, pt has respiratory alkalosis with PaCo2 of 35, this would add some help for ICP, from hemorrhage
[2018-12-01 02:21] VITALS: BP 125/64
--- NOTE | 2018-12-01 03:48 | CON ---
DATE OF CONSULTATION: HISTORY OF PRESENT ILLNESS: Briefly, Mr. Stringer is a 77-year-old male who was brought to the emergency department on 11/24. Briefly, he had atrial fibrillation and aflutter, came to the emergency department, was worked up, found to have infective endocarditis. He was being treated and about to be discharged to rehab. This evening, the patient contacted the nurse stating that he had a severe headache and then became unresponsive. Neurosurgery was consulted because CT of the head was done and shows intraparenchymal and extra-axial hemorrhages with mass effect upon the left cranium secondary to extra-axial hematoma. There is left to right subfalcine herniation, sulcal effacement of the left cerebrum, entrapment of the lateral horn of the right lateral ventricle. I entered the ICU room just before the patient was intubated. The patient is not responsive. GCS of 4. He is extending to painful stimuli. However, he did not have corneal reflexes. Positive doll's eyes and has had a gag. REVIEW OF SYSTEMS: A 10-point review of systems has been completed and is negative other than stated in the above HPI. PAST MEDICAL HISTORY: Cardioversion, he has had ablation twice, mitral valve replacement in 2001, inguinal hernia surgery, laparoscopic cholecystectomy, and diabetes type 2. CURRENT MEDICATIONS: 1. Zetia. 2. Norvasc. 3. Metformin. 4. Vitamin D3. 5. Pravastatin. 6. Glimepiride. 7. Flomax. 8. Ferrous sulfate. 9. Xarelto. 10. Jardiance. ALLERGIES: NO KNOWN DRUG ALLERGIES. SOCIAL HISTORY: Drinks vodka tonics daily along with a glass of wine. Does not abuse drugs. Denies any smoking history. PHYSICAL EXAMINATION: GENERAL: The patient is a 77-year-old male. CONSTITUTIONAL: He is afebrile, normotensive, and tachycardic. HEENT. Head is normocephalic and atraumatic. Pupils are equal, round, and reactive to light. RESPIRATIONS: The patient is having labored breathing and secretions. NEUROLOGIC: The patient is GCS of 4. He will extend to painful stimuli. He has doll's eyes. No corneal reflex. He has a gag and his pupils are equal, round, and reactive. IMAGING: CT of the head was performed showing intraparenchymal and extra-axial hemorrhages, mass effect upon the left cerebrum secondary to extra-axial hematoma. There is a left to right subfalcine herniation, sulcal effacement of the left cerebrum, entrapment of the lateral horn of the right lateral ventricle. ASSESSMENT AND PLAN: Mr. Stringer is a 77-year-old male who sustained significant intraparenchymal hemorrhages. He is on Xarelto for atrial fibrillation and aflutter. He has a deteriorated neurologic status. We have given Kcentra reversal for the Xarelto and we are going to take him to surgery to have a subdural drain placed with a twist-drill. Job ID: [id number]
[2018-12-01] MEDS: Ampicillin 2 GM in Sodium Chloride 0.9% 100 ML IVPB SCH (04:00)
--- NOTE | 2018-12-01 04:59 | PDOC.EVN ---
Event Note - Event Note Event Note: We had family meeting with pt's POA, after discussion about current conditions, prognosis and information provided by surgeon to POA in previous phone conversation family has decided to place pt in DNR status, possible withdrawal of care and switch to comfort care, depending on the ct scan results, will follow family wishes.
[2018-12-01] MEDS ORDERED: Scopolamine 1.5 mg/72 hour Patch TD SCH (07:00)
--- NOTE | 2018-12-01 07:01 | PRG ---
DATE OF SERVICE: 12/01/2018 Mr. Stringer went for CT scan of the brain earlier this morning. His family has arrived and made decisions with the medical team to withdraw support. Once ventilatory support was ceased, he had two breaths before he stopped breathing. comfortably. CT scan does show that he had a wedge-shaped infarct in the parietal lobe on the left side with increased hemorrhage within the infarct. Overnight, the subdural evacuation port decreased the size of the subdural hemorrhage but by the time the scan was done, it increased in density and coagulated. Mr. Stringer's son Bakari in person, whom I had spoken with on the phone. His granddaughter was there and his [id number]. His brother, Quinn, was at the bedside as well. A long discussion about [facility] and his wishes. They were happy that he passed comfortably, but understandably upset about the loss of their loved one. Job ID: [id number]
--- NOTE | 2018-12-01 07:21 | CT ---
CT BRAIN WITHOUT CONTRAST: INDICATIONS: Intracranial hemorrhage. COMPARISON: 11/30/2018 at 3:15 p.m. FINDINGS: There has been interval placement of a cranial bolt, involving the left parietal skull. A small amou nt of pneumocephalus is now present within the subdural hematoma overlying the left convexity. The s ubdural hematoma has slightly lessened in size, now measuring 1.2 cm, where it previously measured 1. 7 cm. The intraparenchymal hematoma involving the left parietal occipital lobe has increased in size, now m easuring 4.3 x 6.5 cm, where previously it measured 2.1 x 2.5 cm. There is worsening surrounding vas ogenic edema. There is worsening ecjt-sk-ecpaa midline shift at 1.4 cm. There has been interval development of intraparenchymal hematomas involving the left middle cerebella r peduncle, as well as the left cerebellar hemisphere. The largest hematoma now measures 1.7 cm. There is worsening effacement of the basilar cisterns. The small subdural hematoma collection along the falx and along the right parietal convexity are like ly stable. The paranasal sinuses and mastoid air cells are clear. IMPRESSION: 1. Worsening hematoma of the left parietal occipital lobe with worsening utjw-mn-bxbub midline shift at 1.4 cm. There is also mild effacement now present within the basilar cisterns. 2. Interval development of intraparenchymal hematoma within the left middle cerebellar peduncle and in the left cerebellar hemisphere, suspicious for new hemorrhagic infarcts. 3. The parafalcine and right parietal subdural hematoma are stable. Findings were called to Dr. Griffiths, caring for this patient, at 5:30 a.m. on 12/01/2018. CODE CR POS:
--- NOTE | 2018-12-01 08:45 | OP ---
DATE OF PROCEDURE: 11/30/2018 ELECTRODE CLEANING MACHINE OPERATOR: Yolanda Strauss PA-C. PREOPERATIVE INDICATION: Prevent further neurological deterioration. 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 OPERATIVE PROCEDURE: Twist-drill craniotomy, vacuum assisted evacuation of anticoagulation related subdural hematoma. PREOPERATIVE MEDICATION: Ceftriaxone 2 g IV. DRAIN NUMBER: 1. DRAIN TYPE: Negative pressure subdural evacuation port. DESCRIPTION OF PROCEDURE: The patient was brought to the operating room. He was previously intubated upstairs. General anesthesia was induced. Hair was removed from the left side of the scalp with electric clippers. The head was positioned in a donut-shaped headrest. We planned a craniotomy just above the superior temporal line in an area where the CT demonstrated some moderate thickness subdural fluid. Under a planned incision, we infused local anesthetic. The scalp was sterilely prepped and draped. We opened with a 10 blade knife and controlled bleeding with bipolar cautery. We placed a self-retaining retractor and brought a twist-drill into the field. Using the appropriately sized bit, we fashioned a craniotomy. We irrigated out the bone chips and we identified the dura. We coagulated the dura and opened it with an 11 blade knife. Thick clot was evident in the subdural space. Some fluid came out with suction and some more solid clot was left behind. We irrigated with bacitracin irrigation. Some more fluid emanated. We then put bone wax in the threads of our evacuation port and the port was screwed into the craniotomy site in a watertight fashion. We irrigated through the port and there was brisk reflow of subdural fluid. We placed a suction tubing over the distal end of the port and connected it to suction grenade. The skin was closed around the drain in a vertical mattress fashion. Bacitracin ointment was used to treat the skin at the entry point and a sterile dressing was applied. Suction was kept on the drainage tube at all times. The patient was transferred back to transport cart and taken back to the ICU. This was a clean case, no contamination. Job ID: [id number]
[2018-12-01] MEDS ORDERED: Diltiazem HCl SR 90 mg Capsule PO SCH (09:00)
--- NOTE | 2018-12-02 00:40 | DIS ---
DATE OF ADMISSION: 11/24/2018 DATE OF DISCHARGE: 12/01/2018 PRIMARY CARE PROVIDER: Benson Chen MD DIAGNOSES: 1. Acute infective endocarditis. 2. Atrial flutter. 3. Intraparenchymal and extra-axial hemorrhages with mass effect upon the left cerebrum secondary to extra-axial hematoma, left to right subfalcine herniation, entrapment of lateral horn of the right lateral ventricle. 4. Sepsis secondary to infective endocarditis, present on admission. CONSULTATIONS DURING THIS HOSPITALIZATION: 1. Cardiology, Dr. Segura. 2. Infectious Diseases, Dr. Hall. 3. Electrophysiology, Dr. De Jesus. 4. Neurosurgery, Dr. Hicks. HOSPITAL COURSE: Mr. Stringer was a pleasant 77-year-old gentleman, who was admitted to [facility] on November 24, 2018, for recurrent atrial flutter. Please refer to Dr. Scott's history and physical note dated November 24, 2018, for further details. He was seen by Electrophysiology Service. He was started on Cardizem drip. 2D echocardiogram showed left ventricular ejection fraction of 50% to 55%, moderately dilated left atrium, [id number] mitral regurgitation, and xzkl-qg-hlrjpfdo tricuspid regurgitation. He had blood cultures drawn at the time of admission. 2/2 blood cultures grew enterococcus faecalis that were resistant to erythromycin but sensitive to ampicillin, doxycycline, gentamicin, imipenem, linezolid, penicillin, piperacillin, high-level streptomycin and vancomycin. He was seen by Infectious Disease Service. He was treated with ampicillin and ceftriaxone. He had INO on November 26, which showed vegetation present on the posterior mitral leaflet with a length of 1 cm. This was a limited study. Plan was to treat him with antibiotics at [facility]. On the evening of November 30, Mr. Stringer complained of headache. CT scan of the brain done without contrast showed intraparenchymal and extra-axial hemorrhages, mass effect upon the left cerebrum secondary to extra-axial hematoma, left to right subfalcine herniation, sulcal effacement of the left cerebrum and entrapment of the lateral horn of the right lateral ventricle. Neurosurgery Service was consulted. That night, Mr. Stringer underwent twist drill craniotomy, vacuum assisted evacuation of anticoagulation related to subdural hematoma. Followup CT scan showed worsening hematoma of the left parietal-occipital lobe with worsening left to right midline shift at 1.4 cm, mild effacement present within the basilar cisterns, interval development of intraparenchymal hematoma within the left middle cerebellar peduncle and in the left cerebellar hemisphere, suspicious for new hemorrhagic infarcts. The parafalcine and right parietal subdural hematoma were stable. Following surgery, the patient was in an intubated state. After discussion between vice principal and the patient's family, it was decided to withdraw care and switch to comfort care. The patient was extubated and the patient comfortably. The patient's time of was 6:04 a.m. on December 01, 2018. Many thanks for allowing me to participate in your patient's care. Please feel free to contact me with any questions or concerns. Job ID: [id number]
== END 2018-12-01 06:04 | disposition expired | DRG 853 ==
LOC: ERS 06:46 → ERHOLD 10:18 → 2NO 14:21 → CCU 11-30 20:25
PROVIDERS: ADMIT Internal Medicine; ATTEND Internal Medicine
PROC: B24BZZ4 Ultrasonography of Heart with Aorta, Transesophageal (ICD-10-PCS; 2018-11-26)
PROC: 02HV33Z Insertion of Infusion Device into Superior Vena Cava, Percutaneous Approach (ICD-10-PCS; principal; 2018-11-28)
PROC: 00C73ZZ Extirpation of Matter from Cerebral Hemisphere, Percutaneous Approach (ICD-10-PCS; 2018-11-30)
PROC: 30283B1 Transfusion of Nonautologous 4-Factor Prothrombin Complex Concentrate into Vein, Percutaneous Approach (ICD-10-PCS; 2018-11-30)
PROC: 5A2204Z Restoration of Cardiac Rhythm, Single (ICD-10-PCS; 2018-11-30)
PROC: 0BH17EZ Insertion of Endotracheal Airway into Trachea, Via Natural or Artificial Opening (ICD-10-PCS; 2018-11-30)
PROC: 5A1935Z Respiratory Ventilation, Less than 24 Consecutive Hours (ICD-10-PCS; 2018-11-30)
DX: A41.81 Sepsis due to Enterococcus (principal); I33.0 Acute and subacute infective endocarditis; G93.5 Compression of brain; I61.2 Nontraumatic intracerebral hemorrhage in hemisphere, unspecified; I48.4 Atypical atrial flutter; I47.1 Supraventricular tachycardia; E87.3 Alkalosis; I48.91 Unspecified atrial fibrillation; I08.1 Rheumatic disorders of both mitral and tricuspid valves; R29.717 NIHSS score 17; R40.2434 Glasgow coma scale score 3-8, 24 hours or more after hospital admission; I10 Essential (primary) hypertension; E11.9 Type 2 diabetes mellitus without complications; D64.9 Anemia, unspecified; E78.5 Hyperlipidemia, unspecified; Z51.5 Encounter for palliative care; Z66 Do not resuscitate; Z16.29 Resistance to other single specified antibiotic; Z98.890 Other specified postprocedural states; Z79.01 Long term (current) use of anticoagulants; Z79.84 Long term (current) use of oral hypoglycemic drugs; Z79.82 Long term (current) use of aspirin; Z79.4 Long term (current) use of insulin; Z88.2 Allergy status to sulfonamides
CPT/HCPCS: 36415; 36416; 36569; 70450; 71045; 80048; 80053; 81003; 81015; 82550; 82805; 83605; 83735; 83880; 84484; 85025; 85610; 85730; 87040; 87077; 87086; 87149; 87186; 93005; 93306; 93312; 94002; 94003; 94760; 96361; 96365; 96366; 96376; C1751; C9132; J0290; J0696; J1160; J1644; J2001; J2060; J2270; J2704; J3010; J3490; J7050